=== PATIENT | male | born 1965 | race American Indian/Alaskan Native ===

== ENCOUNTER 2016-07-22 21:03 | Emergency (ER) | payer BC, OTHER ==
[2016-07-22 22:47] LABS: Anion Gap 21 mmol/L; Basophils % (Auto) 0.6 % (0.0-1.8); Blood Urea Nitrogen 18 mg/dL (9-20); Calcium 8.8 mg/dL (8.4-10.2); Carbon Dioxide 18 mmol/L (22-30); Chloride 108.6 mmol/L (98-107); Eosinophils % (Auto) 3.2 % (0.0-4.3); Glucose 122 mg/dL (75-100); Hematocrit 39.2 % (35.5-45.6); Hemoglobin 12.5 gm/dl (11.8-15.2); Mean Corpuscular HGB Conc 32 % (32-34); Mean Corpuscular Hemoglobin 29 pg (28-32); Mean Corpuscular Volume 92 fl (84-94); Platelet Count 525 K/mm3 (140-440); Potassium 3.8 mmol/L (3.6-5.0); Red Blood Count 4.27 M/mm3 (3.65-5.03); Red Cell Distribution Width 13.9 % (13.2-15.2); Sodium 144 mmol/L (137-145); Uric Acid 4.1 mg/dL (3.5-7.6); White Blood Count 12.9 K/mm3 (4.5-11.0)
--- NOTE | 2016-07-23 01:51 | Emergency Department Report ---
ED Extremity Problem HPI - General Chief complaint: Extremity Injury, Lower Stated complaint: SWOLLEN LT FOOT Time Seen by Provider: 07/23/16 01:50 Source: patient Mode of arrival: Ambulatory Limitations: No Limitations - History of Present Illness Initial comments: Patient here reported that he has swelling to his left foot times one day with pain. Denies any injury. He said he had similar incident in the past in his feeds hand and knees. Patient with history of gouty arthritis and high blood pressure. He has not taken any medication for his high blood pressure. Patient said that he is not being managed by anyone for his chronic medical problem but he would like to be assigned a primary care doctor. She reports pain is 4-10 and is worse with walking. Denies any fever or chills or numbness or tingling to extremities. Denies any personal history of blood clots or family history of blood clots. Denies any recent surgery or long distance travel by car or airplane. Denies taking hormones. MD Complaint: extremity pain, extremity swelling Onset/Timin -: days(s) Location: left, lower extremity (foot) -: No myalgia, Yes arthralgia, No fever, No associated dyspnea, No associated chest pain Radiation: distal Severity scale (0 -10): 4 Quality: aching (throbbing) Consistency: constant Improves with: immobilization Worsens with: weight bearing, walking, palpation Associated Symptoms: arthralgias. denies: chest pain, shortness of breath, fever, myalgias, rash - Related Data Previous Rx's Medication Instructions Recorded Last Taken Type HYDROcodone/APAP 7.5-325 [[place] 1 each PO Q6HR PRN #20 tablet 03/03/15 Unknown Rx 7.5/325] Meloxicam [Mobic] 7.5 mg PO QDAY #30 tablet 03/03/15 Unknown Rx Prednisone [predniSONE 10 mg 10 mg PO .TAPER #1 tab.ds.pk 03/03/15 Unknown Rx (6-Day Pack, 21 Tabs)] amLODIPine [Norvasc] 10 mg PO DAILY #30 tab 03/04/15 Unknown Rx Colchicine [Colcrys] 0.6 mg PO BID PRN #14 tablet 07/23/16 Unknown Rx Ibuprofen [Motrin] 600 mg PO Q8H PRN #15 tablet 07/23/16 Unknown Rx methylPREDNISolone [Medrol] 4 mg PO QAM #1 tab.ds.pk 07/23/16 Unknown Rx Allergies Allergy/AdvReac Type Severity Reaction Status Date / Time No Known Allergies Allergy Verified 03/03/15 22:21 ED Review of Systems ROS: Stated complaint: SWOLLEN LT FOOT Other details as noted in HPI Comment: All other systems reviewed and negative Constitutional: denies: chills, diaphoresis Respiratory: no symptoms reported Cardiovascular: denies: chest pain, palpitations, edema, syncope Gastrointestinal: denies: abdominal pain, nausea, vomiting Musculoskeletal: arthralgia, other (foot swelling). denies: back pain, joint swelling Skin: denies: rash Neurological: denies: headache, numbness, paresthesias, confusion, abnormal gait , vertigo ED Past Medical Hx - Past Medical History Previous Medical History?: Yes Hx Hypertension: Yes (nomeds) Additional medical history: Gout, arthritis - Surgical History Past Surgical History?: No - Family History Family history: hypertension - Social History Smoking Status: Current Every Day Smoker Substance Use Type: Alcohol - Medications Home Medications: Home Medications Medication Instructions Recorded Confirmed Last Taken Type HYDROcodone/APAP 7.5-325 [[place] 1 each PO Q6HR PRN #20 tablet 03/03/15 Unknown Rx 7.5/325] Meloxicam [Mobic] 7.5 mg PO QDAY #30 tablet 03/03/15 Unknown Rx Prednisone [predniSONE 10 mg 10 mg PO .TAPER #1 tab.ds.pk 03/03/15 Unknown Rx (6-Day Pack, 21 Tabs)] amLODIPine [Norvasc] 10 mg PO DAILY #30 tab 03/04/15 Unknown Rx Colchicine [Colcrys] 0.6 mg PO BID PRN #14 tablet 07/23/16 Unknown Rx Ibuprofen [Motrin] 600 mg PO Q8H PRN #15 tablet 07/23/16 Unknown Rx methylPREDNISolone [Medrol] 4 mg PO QAM #1 tab.ds.pk 07/23/16 Unknown Rx ED Physical Exam - General Limitations: No Limitations General appearance: alert, in no apparent distress - Head Head exam: Present: atraumatic, normocephalic, normal inspection - Eye Eye exam: Present: normal appearance, PERRL, EOMI Pupils: Present: normal accommodation - Neck Neck exam: Present: normal inspection, full ROM. Absent: tenderness, meningismus, lymphadenopathy - Respiratory Respiratory exam: Present: normal lung sounds bilaterally. Absent: respiratory distress - Cardiovascular Cardiovascular Exam: Present: regular rate, normal rhythm, normal heart sounds - Expanded Lower Extremity Exam Left Hip exam: Present: normal inspection, full ROM, pelvic stability. Absent: tenderness, swelling, abrasion, laceration, ecchymosis, deformity, crepidus, dislocation, erythema, external rotation, internal rotation, shortening Upper Leg exam: Present: normal inspection, full ROM. Absent: tenderness, swelling, abrasion, laceration, ecchymosis, deformity, crepidus, dislocation, erythema Knee exam: Present: normal inspection, full ROM, pain w/ pronation/supination, full knee extension. Absent: tenderness, swelling, abrasion, laceration, ecchymosis, deformity, crepidus, dislocation, erythema, effusion Lower Leg exam: Present: normal inspection, full ROM. Absent: tenderness, swelling, abrasion, laceration, ecchymosis, deformity, crepidus, dislocation, erythema, palpable cord, Ashwin's sign Ankle exam: Present: normal inspection, full ROM. Absent: tenderness, swelling , abrasion, laceration, ecchymosis, deformity, crepidus, dislocation, erythema Foot/Toe exam: Present: full ROM (full range of motion to left foot but he said it hurts with movement in his foot. Passive range of motion to left foot.), tenderness (left anterior foot), swelling (left anterior foot). Absent: normal inspection, abrasion, laceration, ecchymosis, deformity, crepidus, dislocation, erythema, amputation, puncture wound, foreign body, calcaneal tenderness, tenderness at base of 5th metatarsal, nail avulsion, subungual hematoma Neuro vascular tendon exam: Present: no vascular compromise, significant pain with passive ROM of distal joint. Absent: pulse deficit, abnormal cap refill, motor deficit, sensory deficit, tendon deficit, extremity cold to touch, pallor , abnormal 2-point discrimination, decreased fine/light touch, foot drop, peroneal nerve deficit Gait: Positive: observed and limited by pain - Back Exam Back exam: Present: normal inspection, full ROM - Neurological Exam Neurological exam: Present: alert, oriented X3, normal gait, reflexes normal. Absent: motor sensory deficit - Psychiatric Psychiatric exam: Present: normal affect, normal mood - Skin Skin exam: Present: warm, dry, intact, normal color. Absent: rash ED Course Vital Signs 07/22/16 21:48 Temperature 98.3 F Pulse Rate 91 H Respiratory 18 Rate Blood Pressure 132/80 [Right] O2 Sat by Pulse 99 Oximetry - Reevaluation(s) Reevaluation #1: 07/23/16 03:40 Patient given 60 mg and Motrin 800 mg in emergency room for acute gout attack. ED Medical Decision Making - Lab Data Result diagrams: 07/22/16 21:53 07/22/16 21:53 Lab Results 07/22/16 07/22/16 07/23/16 Range/Units 21:53 21:53 02:11 WBC 12.9 H (4.5-11.0) K/mm3 RBC 4.27 (3.65-5.03) M/mm3 Hgb 12.5 (11.8-15.2) gm/dl Hct 39.2 (35.5-45.6) % MCV 92 (84-94) fl MCH 29 (28-32) pg MCHC 32 (32-34) % RDW 13.9 (13.2-15.2) % Plt Count 525 H (140-440) K/mm3 Lymph % (Auto) 18.7 (13.4-35.0) % Coleman % (Auto) 4.6 (0.0-7.3) % Eos % (Auto) 3.2 (0.0-4.3) % Baso % (Auto) 0.6 (0.0-1.8) % Lymph # 2.4 (1.2-5.4) K/mm3 Coleman # 0.6 (0.0-0.8) K/mm3 Eos # 0.4 (0.0-0.4) K/mm3 Baso # 0.1 (0.0-0.1) K/mm3 Seg Neutrophils % 72.9 H (40.0-70.0) % Seg Neutrophils # 9.4 H (1.8-7.7) K/mm3 PT 14.1 (12.2-14.9) Sec. INR 1.10 (0.87-1.13) APTT 29.8 (24.2-36.6) Sec. Sodium 144 (137-145) mmol/L Potassium 3.8 (3.6-5.0) mmol/L Chloride 108.6 H (98-107) mmol/L Carbon Dioxide 18 L (22-30) mmol/L Anion Gap 21 mmol/L BUN 18 (9-20) mg/dL Creatinine 0.8 (0.8-1.5) mg/dL Estimated GFR > 60 ml/min BUN/Creatinine Ratio 22.50 % Glucose 122 H (75-100) mg/dL Lactic Acid (0.7-2.0) mmol/L Uric Acid 4.1 (3.5-7.6) mg/dL Calcium 8.8 (8.4-10.2) mg/dL 07/23/16 Range/Units 02:11 WBC (4.5-11.0) K/mm3 RBC (3.65-5.03) M/mm3 Hgb (11.8-15.2) gm/dl Hct (35.5-45.6) % MCV (84-94) fl MCH (28-32) pg MCHC (32-34) % RDW (13.2-15.2) % Plt Count (140-440) K/mm3 Lymph % (Auto) (13.4-35.0) % Coleman % (Auto) (0.0-7.3) % Eos % (Auto) (0.0-4.3) % Baso % (Auto) (0.0-1.8) % Lymph # (1.2-5.4) K/mm3 Coleman # (0.0-0.8) K/mm3 Eos # (0.0-0.4) K/mm3 Baso # (0.0-0.1) K/mm3 Seg Neutrophils % (40.0-70.0) % Seg Neutrophils # (1.8-7.7) K/mm3 PT (12.2-14.9) Sec. INR (0.87-1.13) APTT (24.2-36.6) Sec. Sodium (137-145) mmol/L Potassium (3.6-5.0) mmol/L Chloride (98-107) mmol/L Carbon Dioxide (22-30) mmol/L Anion Gap mmol/L BUN (9-20) mg/dL Creatinine (0.8-1.5) mg/dL Estimated GFR ml/min BUN/Creatinine Ratio % Glucose (75-100) mg/dL Lactic Acid 0.6 L (0.7-2.0) mmol/L Uric Acid (3.5-7.6) mg/dL Calcium (8.4-10.2) mg/dL - Radiology Data Radiology results: report reviewed X-ray of left foot revealed no evidence of acute fracture. Moderate arthritis. Moderate hallux valgus deformity - Medical Decision Making Collaborated with Dr. Quintero and patient presentation, complains, clinical findings lab results. It was decided the patient can be discharged home and follow up with his primary care physician. Patient patient lab work also revealed that his white count was elevated at 12 and his neutrophils were high.PLT was at 525. His lactic acid is 0.6. ED course:Low risk group for DVT. Unlikely according to [facility] DVT studies. Patient with history of gout with acute flare.. Acid was normal. Patient said he's had similar incident in the past. I discussed with patient that is fine and I instructed him to discharge instruction well-developed and feels that is high in reading. Patient is stable and forceps understanding of discharge instruction. Patient discharged home with prescription for prednisone, Motrin and Colcrys. Critical care attestation.: If time is entered above; I have spent that time in minutes in the direct care of this critically ill patient, excluding procedure time. ED Disposition Clinical Impression: Arthralgia of left foot, Hallux valgus of left foot Gout attack Qualifiers: Gout site: foot Gout etiology: unspecified cause Laterality: left Qualified Code(s): M10.9 - Gout, unspecified Disposition: DISCHARGED TO HOME OR SELFCARE Is pt being admited?: No Does the pt Need Aspirin: No Condition: Stable Instructions: Arthralgia (ED), Acute Gouty Arthritis (ED), Low Purine Diet (ED) Additional Instructions: History of discharge instructions on well-developed and low purine foods Follow-up with hazardous material specialist DR. Shoemaker is Primary care doctor, calling Monday to schedule appointment for physical and to manage chronic diseases. Prescriptions: Colchicine [Colcrys] 0.6 mg PO BID PRN #14 tablet PRN Reason: GOUT PAIN Ibuprofen [Motrin] 600 mg PO Q8H PRN #15 tablet PRN Reason: Pain methylPREDNISolone [Medrol] 4 mg PO QAM #1 tab.ds.pk Referrals: HERNÁN ROBLES DPM [Staff Physician] - 2-3 Days JANE SHOEMAKER MD [Staff Physician] - 2-3 Days Forms: Work/School Release Form(ED)
--- NOTE | 2016-07-23 02:00 | XRay Report ---
FINAL REPORT PROCEDURE: XR FOOT 3 LT TECHNIQUE: LEFT foot radiographs, AP, oblique and lateral views. HISTORY: pain, swelling, send for report COMPARISON: No prior studies are available for comparison. FINDINGS: Fracture (s) and/or Dislocation(s): None . Alignment: There is moderate hallux valgus deformity. Spur formation off of the sesamoid bones of the head of the 1st metatarsal are noted. Joint space(s): Mild narrowing of the interphalangeal joint spaces. Soft tissues: Normal. Bone mineralization: Normal. Foreign bodies: None. Calcaneal spurring: None. IMPRESSION: There is no evidence of an acute fracture. Moderate arthritis. Moderate hallux valgus deformity.
[2016-07-23 02:37] LABS: INR 1.1 (0.87-1.13)
[2016-07-23 02:38] LABS: Partial Thromboplastin Time 29.8 Sec. (24.2-36.6)
[2016-07-23] MEDS ORDERED: MOTRIN PO ONE (03:24)
[2016-07-23] MEDS ORDERED: DELTASONE PO ONE (03:32)
[2016-07-23 04:01] VITALS: BP 139/82
== END 2016-07-23 04:00 | disposition home or self-care (01) ==
LOC: ED 21:03
DX: M20.12 Hallux valgus (acquired), left foot (principal); M10.9 Gout, unspecified; I10 Essential (primary) hypertension; M19.90 Unspecified osteoarthritis, unspecified site; F17.200 Nicotine dependence, unspecified, uncomplicated
CPT/HCPCS: 36415; 73630; 80048; 82140; 84550; 85025; 85610; 85730; 99284; J7512

== ENCOUNTER 2019-02-08 18:45 | Emergency (ER) | payer OTHER ==
--- NOTE | 2019-02-08 19:18 | Event Note ---
ED Screening Note Date of service: 02/08/19 Time: 19:14 ED Screening Note: 53 y/o male comes in for left ankle pain swelling and warm time 1 day. Patient has a h/x gout and HTN but does not take any medication for his blood pressure. No FRANCO no chest pain. This initial assessment/diagnostic orders/clinical plan/treatment(s) is/are subject to change based on patients health status, clinical progression and re- assessment by fellow clinical providers in the ED. Further treatment and workup at subsequent clinical providers discretion. Patient/guardian urged not to elope from the ED as their condition may be serious if not clinically assessed and managed. Initial orders include:
[2019-02-08 19:22] VITALS: BP 170/117
[2019-02-08] MEDS ORDERED: COLCHICINE 0.6 MG CAP PO ONE (19:59)
[2019-02-08] MEDS ORDERED: methylPREDNISolone Sod Succinate 125 MG/2 ML INJ IM ONE (19:59)
[2019-02-08] MEDS ORDERED: KETOROLAC 30 MG/1 ML INJ IM ONE (19:59)
--- NOTE | 2019-02-08 20:47 | Emergency Department Report ---
ED Extremity Problem HPI - General Chief complaint: Extremity Problem,Nontraumatic Stated complaint: FOOT/ANKLE PAIN Time Seen by Provider: 02/08/19 19:14 Source: patient Mode of arrival: Ambulatory Limitations: No Limitations - History of Present Illness Initial comments: Patient is a 53-year-old -[place] male with a history of chronic gouty arthropathy and degenerative joint disease presents to the ED with complaint of acute exacerbation of his chronic gout pain characterized by severe left ankle and foot pain for the last 3 days. Patient states that he has been taking ibuprofen with no relief. Patient denies fever, chills, nausea, vomiting, numbness and tingling of left leg, dizziness, chest pain, shortness of breath, traumatic injury, heavy lifting or fall. MD Complaint: extremity pain (left ankle pain, swelling), extremity swelling (left ankle), joint swelling (left ankle), joint paint (left ankle), other (H/o Gouty arthropathy) -: Sudden, days(s) (2) Location: lower extremity (left ankle) History of Same: Yes (chronic gout) -: Yes arthralgia, No fever, No associated dyspnea, No associated chest pain Radiation: none Severity scale (0 -10): 7 Quality: aching, sharp Consistency: constant Improves with: nothing Worsens with: weight bearing, walking, exertion, palpation Associated Symptoms: denies other symptoms, arthralgias. denies: chest pain, shortness of breath, fever, myalgias, rash, other - Related Data Previous Rx's Medication Instructions Recorded Last Taken Type HYDROcodone/APAP 7.5-325 [[place] 1 each PO Q6HR PRN #20 tablet 03/03/15 Unknown Rx 7.5/325] Meloxicam [Mobic] 7.5 mg PO QDAY #30 tablet 03/03/15 Unknown Rx Prednisone [predniSONE 10 mg 10 mg PO .TAPER #1 tab.ds.pk 03/03/15 Unknown Rx (6-Day Pack, 21 Tabs)] amLODIPine [Norvasc] 10 mg PO DAILY #30 tab 03/04/15 Unknown Rx Colchicine [Colcrys] 0.6 mg PO BID PRN #14 tablet 07/23/16 Unknown Rx Ibuprofen [Motrin] 600 mg PO Q8H PRN #15 tablet 07/23/16 Unknown Rx methylPREDNISolone [Medrol] 4 mg PO QAM #1 tab.ds.pk 07/23/16 Unknown Rx Colchicine 0.6 mg PO Q8H #30 capsule 02/08/19 Unknown Rx Indomethacin 50 mg PO Q8H PRN #45 capsule 02/08/19 Unknown Rx Prednisone [predniSONE 10 mg 10 mg PO .TAPER #1 tab.ds.pk 02/08/19 Unknown Rx (6-Day Pack, 21 Tabs)] traMADol [Ultram] 50 mg PO Q6HR PRN #12 tablet 02/08/19 Unknown Rx Allergies Allergy/AdvReac Type Severity Reaction Status Date / Time No Known Allergies Allergy Verified 03/03/15 22:21 ED Review of Systems ROS: Stated complaint: FOOT/ANKLE PAIN Other details as noted in HPI Constitutional: denies: chills, fever Eyes: denies: eye pain, eye discharge, vision change ENT: denies: ear pain, throat pain Respiratory: denies: cough, shortness of breath, wheezing Cardiovascular: denies: chest pain, palpitations Endocrine: no symptoms reported Gastrointestinal: denies: abdominal pain, nausea, diarrhea Genitourinary: denies: urgency, dysuria Musculoskeletal: joint swelling (left ankle), arthralgia (left ankle), myalgia (left ankle). denies: back pain Skin: denies: rash, lesions Neurological: denies: headache, weakness, paresthesias Psychiatric: denies: anxiety, depression Hematological/Lymphatic: denies: easy bleeding, easy bruising ED Past Medical Hx - Past Medical History Previous Medical History?: Yes Hx Hypertension: Yes (nomeds) Additional medical history: Gout, arthritis - Surgical History Past Surgical History?: No - Social History Smoking Status: Current Every Day Smoker Substance Use Type: Alcohol - Medications Home Medications: Home Medications Medication Instructions Recorded Confirmed Last Taken Type HYDROcodone/APAP 7.5-325 [[place] 1 each PO Q6HR PRN #20 tablet 03/03/15 Unknown Rx 7.5/325] Meloxicam [Mobic] 7.5 mg PO QDAY #30 tablet 03/03/15 Unknown Rx Prednisone [predniSONE 10 mg 10 mg PO .TAPER #1 tab.ds.pk 03/03/15 Unknown Rx (6-Day Pack, 21 Tabs)] amLODIPine [Norvasc] 10 mg PO DAILY #30 tab 03/04/15 Unknown Rx Colchicine [Colcrys] 0.6 mg PO BID PRN #14 tablet 07/23/16 Unknown Rx Ibuprofen [Motrin] 600 mg PO Q8H PRN #15 tablet 07/23/16 Unknown Rx methylPREDNISolone [Medrol] 4 mg PO QAM #1 tab.ds.pk 07/23/16 Unknown Rx Colchicine 0.6 mg PO Q8H #30 capsule 02/08/19 Unknown Rx Indomethacin 50 mg PO Q8H PRN #45 capsule 02/08/19 Unknown Rx Prednisone [predniSONE 10 mg 10 mg PO .TAPER #1 tab.ds.pk 02/08/19 Unknown Rx (6-Day Pack, 21 Tabs)] traMADol [Ultram] 50 mg PO Q6HR PRN #12 tablet 02/08/19 Unknown Rx ED Physical Exam - General Limitations: No Limitations General appearance: alert, in no apparent distress - Head Head exam: Present: atraumatic, normocephalic, normal inspection - Eye Eye exam: Present: normal appearance, PERRL, EOMI Pupils: Present: normal accommodation - ENT ENT exam: Present: normal exam, normal orophraynx, mucous membranes moist, TM's normal bilaterally, normal external ear exam - Neck Neck exam: Present: normal inspection, full ROM - Respiratory Respiratory exam: Present: normal lung sounds bilaterally. Absent: respiratory distress, wheezes, rales, rhonchi, chest wall tenderness, accessory muscle use, decreased breath sounds, prolonged expiratory - Cardiovascular Cardiovascular Exam: Present: regular rate, normal rhythm, normal heart sounds. Absent: systolic murmur, diastolic murmur, rubs, gallop - GI/Abdominal GI/Abdominal exam: Present: soft, normal bowel sounds. Absent: tenderness, guarding, rebound, hyperactive bowel sounds, hypoactive bowel sounds, organomegaly, mass - Rectal Rectal exam: Present: deferred - Extremities Exam Extremities exam: Present: normal inspection, full ROM, tenderness (left ankle), normal capillary refill, joint swelling (left ankle) - Back Exam Back exam: Present: normal inspection, full ROM. Absent: tenderness, CVA tenderness (R), CVA tenderness (L), muscle spasm, paraspinal tenderness - Neurological Exam Neurological exam: Present: alert, oriented X3, CN II-XII intact, normal gait, reflexes normal - Psychiatric Psychiatric exam: Present: normal affect, normal mood - Skin Skin exam: Present: warm, dry, intact, normal color. Absent: rash ED Course Vital Signs 02/08/19 19:18 Temperature 98.2 F Pulse Rate 96 H Respiratory 20 Rate Blood Pressure 170/117 O2 Sat by Pulse 100 Oximetry - Reevaluation(s) Reevaluation #1: 02/08/19 20:53 This is a 53-year-old male with a history of chronic and hypertension presented to the ED with acute exacerbation of his chronic gouty arthropathy characterized by left ankle pain and swelling for 2 days. In the ED, patient is alert and oriented 3 and is not in distress but appears to be in pain. Patient was treated for pain in the ED and discharged home on medications including steroid Dosepak and indomethacin. Patient was advised to follow-up with his primary care physician in 7-10 days for reevaluation or return to the ED immediately if symptoms get worse. ED Medical Decision Making - Medical Decision Making This is a 53-year-old male with a history of chronic and hypertension presented to the ED with acute exacerbation of his chronic gouty arthropathy characterized by left ankle pain and swelling for 2 days. In the ED, patient is alert and oriented 3 and is not in distress but appears to be in pain. Patient was treated for pain in the ED and discharged home on medications including steroid Dosepak and indomethacin. Patient was advised to follow-up with his primary care physician in 7-10 days for reevaluation or return to the ED immediately if symptoms get worse. - Differential Diagnosis Gouty arthropathy; Chronic pain; Chronic DJD; ankle pain Critical care attestation.: If time is entered above; I have spent that time in minutes in the direct care of this critically ill patient, excluding procedure time. ED Disposition Clinical Impression: Acute gouty arthropathy, Acute left ankle pain Disposition: DC-01 TO HOME OR SELFCARE Is pt being admited?: No Does the pt Need Aspirin: No Condition: Stable Instructions: Arthralgia (ED), Acute Gouty Arthritis (ED) Additional Instructions: Take medication with food, drink plenty of fluids and follow-up with your primary care physician in 7-10 days for reevaluation. Return to the ED immediately if symptoms get worse. Prescriptions: Colchicine 0.6 mg PO Q8H #30 capsule Indomethacin 50 mg PO Q8H PRN #45 capsule PRN Reason: Pain , Severe (7-10) Prednisone [predniSONE 10 mg (6-Day Pack, 21 Tabs)] 10 mg PO .TAPER #1 tab.ds.pk traMADol [Ultram] 50 mg PO Q6HR PRN #12 tablet PRN Reason: Pain [facility] - [facility] Time of Disposition: 20:44 Print Language: SLOVAK
== END 2019-02-08 21:15 | disposition home or self-care (01) ==
LOC: ED 18:45
DX: M10.9 Gout, unspecified (principal); I10 Essential (primary) hypertension; F17.200 Nicotine dependence, unspecified, uncomplicated
CPT/HCPCS: 96372; 99282; J1885; J2930

== ENCOUNTER 2020-02-22 11:54 | Inpatient (IN) | payer OTHER ==
--- NOTE | 2020-02-22 16:57 | Event Note ---
ED Screening Note Date of service: 02/22/20 Time: 16:55 ED Screening Note: This initial assessment/diagnostic orders/clinical plan/treatment(s) is/are subject to change based on patients health status, clinical progression and re- assessment by fellow clinical providers in the ED. Further treatment and workup at subsequent clinical providers discretion. Patient/guardian urged not to elope from the ED as their condition may be serious if not clinically assessed and managed. Initial orders include: 54-year-old male complaining of shortness of breath and weakness x3 days he reports having chest pain last night while at work. He is also complaining of nausea no vomiting no fever no chills patient is a smoker and drinks a sixpack of beer every other day. Patient states that he is out of his blood pressure medication the last time he had blood pressure meds was in June and it was g iven to him in this emergency room. He states he has had no other medical follow-up. Orders placed for chest x-ray EKG CBC CMP troponin and BNP chart placed in the main emergency room for physician to see
--- NOTE | 2020-02-22 17:08 | XRay Report ---
CHEST PA AND LATERAL VIEWS INDICATION: sob. COMPARISON: 07/21/2019 FINDINGS: Support devices: None Heart: Moderately enlarged, possibly increased slightly since June Lungs/Pleura: No definite pulmonary edema or other acute disease. No evidence of significant pleural fluid. IMPRESSION: 1. Cardiomegaly but no definite acute disease. Signer Name: Antonino Yo MD Signed: 02/22/2020 5:03 PM Workstation Name: [id number]
[2020-02-22 17:12] LABS: Alanine Aminotransferase 71 units/L (7-56); Albumin 3.8 g/dL (3.9-5); BUN/Creatinine Ratio 28; Blood Urea Nitrogen 28 mg/dL (9-20); Calcium 9.2 mg/dL (8.4-10.2); Hemolysis Index 110
[2020-02-22] MEDS ORDERED: ACETAMINOPHEN 325 MG TAB PO ONE (17:15)
[2020-02-22 17:18] LABS: Basophils # (Auto) 0.1 K/mm3 (0.0-0.1); Basophils % (Auto) 1.1 % (0.0-1.8); Eosinophils # (Auto) 0.2 K/mm3 (0.0-0.4); Eosinophils % (Auto) 2.3 % (0.0-4.3); Hematocrit 46.5 % (35.5-45.6); Hemoglobin 15.2 gm/dl (11.8-15.2); Lymphocytes # (Auto) 2.8 K/mm3 (1.2-5.4); Lymphocytes % (Auto) 31.8 % (13.4-35.0); Mean Corpuscular HGB Conc 33 % (32-34); Mean Corpuscular Volume 90 fl (84-94); Monocytes # (Auto) 0.6 K/mm3 (0.0-0.8); Platelet Count 256 K/mm3 (140-440); Red Blood Count 5.19 M/mm3 (3.65-5.03); Red Cell Distribution Width 15.6 % (13.2-15.2)
--- NOTE | 2020-02-22 17:18 | Emergency Department Report ---
ED General Adult HPI - General Chief complaint: Dyspnea/Respdistress Stated complaint: SOB/WEAKNESS PUI?: No Time Seen by Provider: 02/22/20 17:02 Source: patient, RN notes reviewed, old records reviewed Mode of arrival: Ambulatory Limitations: No Limitations - History of Present Illness Initial comments: The patient was evaluated in the emergency department for symptoms described in the history of present illness. He/she was evaluated in the context of the global COVID-19 pandemic, which necessitated consideration that the patient might be at risk for infection with the virus that causes COVID-19. Institutional protocols and algorithms that pertain to the evaluation of patients at risk for COVID-19 are in a state of rapid change based on information released by regulatory bodies including the CDC and federal and sta te organizations. These policies and algorithms were followed during the patient's care in the emergency department. Please note that these policies, procedures and recommendations changed on a rapid basis. Patient is a 54-year-old gentleman. Patient has a past medical history of hypertension, gout, tobacco dependency, question COPD (has not had formal pulmonary function testing that he is aware of.) The patient presents to the ER today with complaint of nontraumatic central, bilateral chest pain, that does not radiate to the back, arms or neck, no vomiting, positive diaphoresis, positive shortness of breath, positive lower extremity swelling, positive abdominal distention and discomfort. Symptoms present for the past 5 to 6 days. There is no headache or neck pain. There is no vomiting. There were no DVT or pulmonary embolism risk factors. No recent aspirin consumption. No cardiac risk ratification that he is aware of. No personal family history of DVT, pulmonary embolism or ischemic heart disease that he is aware of. He does not have a primary care doctor. 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 -: Gradual, days(s) Location: chest Radiation: non-radiation Quality: aching Consistency: intermittent Improves with: none Worsens with: none - Related Data Previous Rx's Medication Instructions Recorded Last Taken Type Acetaminophen [Acetaminophen TAB] 325 mg PO Q6H PRN #15 tablet 07/23/19 Unknown Rx Allergies Allergy/AdvReac Type Severity Reaction Status Date / Time No Known Allergies Allergy Verified 03/03/15 22:21 ED Review of Systems ROS: Stated complaint: SOB/WEAKNESS Other details as noted in HPI Constitutional: malaise, weakness, other (No loss of taste, no loss of smell). denies: fever ENT: congestion Cardiovascular: chest pain, orthopnea, edema Gastrointestinal: abdominal pain, nausea. denies: vomiting, hematemesis, melena, hematochezia Genitourinary: denies: dysuria Musculoskeletal: myalgia Skin: denies: lesions Neurological: weakness Hematological/Lymphatic: denies: easy bleeding ED Past Medical Hx - Past Medical History Previous Medical History?: Yes Hx Hypertension: Yes Hx Arthritis: Yes Additional medical history: Gout, arthritis - Surgical History Past Surgical History?: No - Social History Smoking Status: Current Every Day Smoker Substance Use Type: Alcohol - Medications Home Medications: Home Medications Medication Instructions Recorded Confirmed Last Taken Type Acetaminophen [Acetaminophen TAB] 325 mg PO Q6H PRN #15 tablet 07/23/19 02/22/20 Unknown Rx ED Physical Exam - General Limitations: No Limitations General appearance: alert, anxious, obese - Head Head exam: Present: atraumatic, normocephalic - Eye Eye exam: Present: normal appearance, EOMI. Absent: nystagmus - ENT ENT exam: Present: normal exam, normal orophraynx, mucous membranes moist, normal external ear exam - Neck Neck exam: Present: normal inspection, full ROM. Absent: tenderness, m eningismus - Respiratory Respiratory exam: Present: decreased breath sounds. Absent: respiratory distress, rales, rhonchi, stridor - Cardiovascular Cardiovascular Exam: Present: regular rate, normal rhythm, normal heart sounds, JVD. Absent: bradycardia, tachycardia, irregular rhythm, systolic murmur, diastolic murmur, rubs, gallop - GI/Abdominal GI/Abdominal exam: Present: soft, normal bowel sounds. Absent: distended, tenderness, guarding, rebound, rigid, pulsatile mass - Rectal Rectal exam: Present: deferred - Extremities Exam Extremities exam: Present: normal inspection, full ROM, pedal edema, other (2+ pulses noted in the bilateral upper and lower extremities. There is no palpable cord. negative Homans sign. Muscular compartments are soft. The pelvis is stable.). Absent: calf tenderness - Back Exam Back exam: Present: normal inspection, full ROM. Absent: tenderness, CVA tenderness (R), CVA tenderness (L), paraspinal tenderness, vertebral tenderness - Neurological Exam Neurological exam: Present: alert, oriented X3, other (No facial droop. Tongue midline. Extraocular movements intact bilaterally. Facial sensation intact to light touch in V1, V2, V3 distribution bilaterally. 5 and a 5 strength in 4 extremities. Sensation intact to light touch in 4 extremities.). Absent: motor sensory deficit - Psychiatric Psychiatric exam: Present: normal affect, normal mood - Skin Skin exam: Present: warm, dry, intact, normal color. Absent: rash ED Course Vital Signs 02/22/20 02/22/20 02/22/20 12:26 16:32 17:14 Temperature 97.9 F 97.6 F Pulse Rate 89 90 Respiratory 18 20 Rate Blood Pressure 173/123 Blood Pressure 180/130 [Right] O2 Sat by Pulse 99 96 94 Oximetry 02/22/20 02/22/20 02/22/20 17:54 18:00 18:33 Temperature Pulse Rate Respiratory 22 22 Rate Blood Pressure Blood Pressure [Right] O2 Sat by Pulse 93 96 Oximetry 02/22/20 02/22/20 02/22/20 18:38 18:58 19:01 Temperature Pulse Rate 88 90 84 Respiratory 24 30 H Rate Blood Pressure 168/124 168/127 Blood Pressure 168/124 [Right] O2 Sat by Pulse 97 93 Oximetry - Reevaluation(s) Reevaluation #1: 02/22/20 20:36 CT scan of the chest negative for pulmonary embolism, positive for congestive heart failure as expected ED Medical Decision Making - Lab Data Result diagrams: 02/22/20 16:38 02/22/20 16:38 Vital Signs 02/22/20 02/22/20 02/22/20 12:26 16:32 17:54 Temperature 97.9 F 97.6 F Pulse Rate 89 90 Respiratory 18 20 22 Rate Blood Pressure 173/123 Blood Pressure 180/130 [Right] O2 Sat by Pulse 99 96 Oximetry Lab Results 02/22/20 02/22/20 02/22/20 Range/Units 16:38 16:38 16:38 WBC 8.7 (4.5-11.0) K/mm3 RBC 5.19 H (3.65-5.03) M/mm3 Hgb 15.2 (11.8-15.2) gm/dl Hct 46.5 H (35.5-45.6) % MCV 90 (84-94) fl MCH 29 (28-32) pg MCHC 33 (32-34) % RDW 15.6 H (13.2-15.2) % Plt Count 256 (140-440) K/mm3 Lymph % (Auto) 31.8 (13.4-35.0) % [place] % (Auto) 7.0 (0.0-7.3) % Eos % (Auto) 2.3 (0.0-4.3) % Baso % (Auto) 1.1 (0.0-1.8) % Lymph # (Auto) 2.8 (1.2-5.4) K/mm3 [place] # (Auto) 0.6 (0.0-0.8) K/mm3 Eos # (Auto) 0.2 (0.0-0.4) K/mm3 Baso # (Auto) 0.1 (0.0-0.1) K/mm3 Seg Neutrophils % 57.8 (40.0-70.0) % Seg Neutrophils # 5.0 (1.8-7.7) K/mm3 Sodium 140 (137-145) mmol/L Potassium 4.7 (3.6-5.0) mmol/L Chloride 108.6 H (98-107) mmol/L Carbon Dioxide 20 L (22-30) mmol/L Anion Gap 16 mmol/L BUN 28 H (9-20) mg/dL Creatinine 1.0 (0.8-1.3) mg/dL Estimated GFR > 60 ml/min BUN/Creatinine Ratio 28 % Glucose 98 (75-100) mg/dL Calcium 9.2 (8.4-10.2) mg/dL Total Bilirubin 1.00 (0.1-1.2) mg/dL AST 75 H (5-40) units/L ALT 71 H (7-56) units/L Alkaline Phosphatase 171 H (35-129) units/L Troponin T < 0.010 (0.00-0.029) ng/mL NT-Pro-B Natriuret Pep 6093 H (0-900) pg/mL Total Protein 6.5 (6.3-8.2) g/dL Albumin 3.8 L (3.9-5) g/dL Albumin/Globulin Ratio 1.4 % - EKG Data -: EKG Interpreted by Pr EKG shows normal: sinus rhythm Rate: normal - EKG Data 10/24/20 18:37 The EKG today shows a sinus rhythm, 86 bpm, left axis deviation, left anterior fascicular block, premature atrial contractions, atrial enlargement, persistent T wave abnormalities in the lateral leads, the EKG is abnormal, the EKG is not a STEMI. - Radiology Data Radiology results: report reviewed, image reviewed Print Report Referring Physician: MARCO ANTONIO STERLING Patient Name: LYDIA VALENTE Date of : 1965 Sex: Male Report Date: 2020-02-22 Report Status: Finalized Findings [facility] [address] [place] [address] XRay Report Signed Patient: LYDIA VALENTE MR#: [id number] : 1965 Acct:[id number] Age/Sex: 54 / M ADM Date: 02/22/20 Loc: ED Attending Dr: Ordering Physician: LE TREVIÑO Date of Service: 02/22/20 Procedure(s): XR chest routine 2V Accession Number(s): [id number] cc: LE TREVIÑO Fluoro Time In Minutes: CHEST PA AND LATERAL VIEWS INDICATION: sob. COMPARISON: 07/21/2019 FINDINGS: Support devices: None Heart: Moderately enlarged, possibly increased slightly since June Lungs/Pleura: No definite pulmonary edema or other acute disease. No evidence of significant pleural fluid. IMPRESSION: 1. Cardiomegaly but no definite acute disease. Signer Name: Antonino Yo MD Signed: 02/22/2020 5:03 PM Workstation Name: [id number] Transcribed By: TM Dictated By: Antonino Yo MD Electronically Authenticated By: Antonino Yo MD Signed Date/Time: 02/22/201702 DD/ 01 TD/TT: - Medical Decision Making Differential diagnosis, including but not limited to: CHF exacerbation, acute coronary syndrome, pneumonia, pulmonary embolism, obstructive sleep apnea, pulmonary hypertension Assessment and plan: 54-year-old gentleman, with numerous cardiovascular comorbidities, including hypertension, obesity, tobacco consumption, who is not currently tachycardic, tachypneic or hypoxic, who denies DVT, pulmonary embolism risk factors, who is low risk by Wells criteria, with chest pain, shortness of breath, orthopnea, lower extremity swelling, cardiomegaly, suspect acute congestive heart failure. Patient moderate risk for major adverse cardiac event as per heart score. Patient states no contraindications to nitroglycerin (does not take erectile dysfunction medication.) No recent cardiac risk ratification, no definitive pulmonary evaluation. We have recommended admission for diuresis, and accelerated cardiac risk ratification. Discussed this with the patient, who verbalized understanding, and is amenable to this plan of care. Hospital physician, Dr. Robe Dumont to admit Transaminitis is likely secondary to congestive hepatopathy, likely secondary to congestive heart failure. Critical Care Time: Yes Critical care time in (mins) excluding proc time.: 35 Critical care attestation.: If time is entered above; I have spent that time in minutes in the direct care of this critically ill patient, excluding procedure time. ED Disposition Clinical Impression: Acute chest pain, Acute CHF Disposition: 09 OP ADMIT IP TO THIS HOSP Is pt being admited?: Yes Does the pt Need Aspirin: No Condition: Good Instructions: Chest Pain (ED) Referrals: PRIMARY CARE, [Primary Care Provider] - 3-5 Days Heart Score - HEART Score History: Moderately suspicious EKG: Non-specific Age: 45-65 Risk factors: 1-2 risk factors Troponin: < normal limit HEART Score: 4 - Critical Actions Critical Actions: 4-6 pts:12-16.6% risk of adverse cardiac event. Should be admitted
[2020-02-22] MEDS ORDERED: ASPIRIN 81 MG TAB CHEW PO ONE (18:34)
[2020-02-22] MEDS ORDERED: NITROGLYCERIN 0.4 MG TAB SUBL SL PRN (18:34)
[2020-02-22] MEDS ORDERED: FUROSEMIDE 40 MG/4 ML INJ IV ONE (18:34)
[2020-02-22] MEDS ORDERED: amLODIPine 5 MG TAB PO ONE (18:40)
[2020-02-22 18:52] LABS: INR 1.3 (0.87-1.13)
--- NOTE | 2020-02-22 19:58 | Cat Scan Report ---
CT angio chest INDICATION: cp dyspnea + d dimer, cardiomegaly. TECHNIQUE: All CT scans at this location are performed using CT dose reduction for ALARA by means of automated e xposure control. MIP and/or 3-D reconstruction images were produced. COMPARISON: None available. FINDINGS: Multiple very slightly enlarged nodes are demonstrated in the anterior mediastinum, aortopulmonary wi ndow and pretracheal region. There are also slightly enlarged nodes in both axillae, more prominent o n the left. Upper abdomen is negative. Heart is slightly enlarged. Small right pleural effusion. Mild interstitial disease suggests slight pulmonary edema. More focal d isease in the right base is probably atelectasis. No evidence of pulmonary embolus. IMPRESSION: 1. Cardiomegaly with interstitial disease (probably edema) and small right pleural effusion, most sug gestive of mild congestive failure. 2. Negative for pulmonary embolus. Signer Name: Antonino Yo MD Signed: 02/22/2020 7:53 PM Workstation Name: [id number]
[2020-02-22] MEDS ORDERED: NITROGLYCERIN 2% OINT 1 GM TP ONE (22:24)
[2020-02-22] MEDS ORDERED: ACETAMINOPHEN 325 MG TAB PO PRN ×2 (23:14→23:15)
[2020-02-22] MEDS ORDERED: METOCLOPRAMIDE 10 MG/2 ML INJ IV PRN (23:15)
[2020-02-22] MEDS ORDERED: HYDROmorphone 1 MG/1 ML INJ IV PRN (23:15)
[2020-02-22] MEDS ORDERED: ONDANSETRON 4 MG/2 ML INJ IV PRN (23:15)
[2020-02-22] MEDS ORDERED: oxyCODONE /ACETAMINOPHEN 5-325MG TAB PO PRN (23:15)
--- NOTE | 2020-02-22 23:30 | History and Physical Report ---
History of Present Illness Date of examination: 02/22/20 Date of admission: 02/22/20 18:41 Chief complaint: Shortness of breath on minimal exertion for 1 week History of present illness: 54-year-old male with history of hypertension gout nicotine dependence and COPD comes in for shortness of breath on minimal exertion and orthopnea and class IV NYHA symptoms. Patient has been getting short of breath with minimal exertion for 1 week. Patient has no prior history of congestive heart failure. No cough. No chest pain. No PND attacks. No exposure to coronavirus. No syncope. - Past Medical History Previous Medical History?: Yes Hypertension: Yes Arthritis: Yes Additional medical history: Gout, arthritis - Surgical History Past Surgical History?: No - Social History Smoking Status: Current Every Day Smoker Substance Use Type: Alcohol -Family History htn - Medications Home Medications: Home Medications Medication Instructions Recorded Confirmed Last Taken Type Acetaminophen [Acetaminophen TAB] 325 mg PO Q6H PRN #15 tablet 07/23/19 02/22/20 Unknown Rx Review of Systems ROS: Stated complaint: SOB/WEAKNESS Other details as noted in HPI Constitutional: malaise, weakness, other (No loss of taste, no loss of smell). denies: fever ENT: congestion Cardiovascular: chest pain, orthopnea, edema Gastrointestinal: abdominal pain, nausea. denies: vomiting, hematemesis, melena, hematochezia Genitourinary: denies: dysuria Musculoskeletal: myalgia Skin: denies: lesions Neurological: weakness Hematological/Lymphatic: denies: easy bleeding Medications and Allergies Allergies Allergy/AdvReac Type Severity Reaction Status Date / Time No Known Allergies Allergy Verified 03/03/15 22:21 Home Medications Medication Instructions Recorded Confirmed Last Taken Type Acetaminophen [Acetaminophen TAB] 325 mg PO Q6H PRN #15 tablet 07/23/19 02/22/20 Unknown Rx Active Meds: Active Medications Nitroglycerin (Nitrostat) 0.4 mg SL .Q5MIN PRN PRN Reason: Chest Pain Exam - Constitutional Vitals: Temp Pulse Resp BP Pulse Ox 98.2 F 81 20 174/118 100 02/22/20 20:00 02/22/20 20:00 02/22/20 20:00 02/22/20 20:00 02/22/20 20:00 General appearance: Present: mild distress, well-nourished - EENT Eyes: Present: PERRL ENT: hearing intact, clear oral mucosa - Neck Neck: Present: supple, normal ROM - Respiratory Respiratory effort: normal Respiratory: bilateral: CTA - Cardiovascular Heart rate: 78 Rhythm: regular Heart Sounds: Present: S1 & S2. Absent: rub, click - Extremities Extremities: no ischemia, pulses intact, pulses symmetrical, No edema Peripheral Pulses: within normal limits - Abdominal General gastrointestinal: Present: soft, non-tender, non-distended, normal bowel sounds Male genitourinary: Present: normal - Rectal Rectal Exam: deferred - Integumentary Integumentary: Present: clear, warm, dry - Musculoskeletal Musculoskeletal: gait normal, strength equal bilaterally - Psychiatric Psychiatric: appropriate mood/affect, intact judgment & insight - Neurologic Neurologic: CNII-XII intact, moves all extremities - Allied Health Allied health notes reviewed: nursing, case management HEART Score - HEART Score EKG: Non-specific Age: 45-65 Risk factors: 1-2 risk factors Troponin: Troponin T < 0.010 ng/mL (0.00-0.029) 02/22/20 18:10 Troponin: < normal limit - Critical Actions Critical Actions: 4-6 pts:12-16.6% risk of adverse cardiac event. Should be admitted Results - Labs CBC & Chem 7: 02/22/20 16:38 02/22/20 16:38 Labs: Laboratory Last Values WBC 8.7 K/mm3 (4.5-11.0) 02/22/20 16:38 RBC 5.19 M/mm3 (3.65-5.03) H 02/22/20 16:38 Hgb 15.2 gm/dl (11.8-15.2) 02/22/20 16:38 Hct 46.5 % (35.5-45.6) H 02/22/20 16:38 MCV 90 fl (84-94) 02/22/20 16:38 MCH 29 pg (28-32) 02/22/20 16:38 MCHC 33 % (32-34) 02/22/20 16:38 RDW 15.6 % (13.2-15.2) H 02/22/20 16:38 Plt Count 256 K/mm3 (140-440) 02/22/20 16:38 Lymph % (Auto) 31.8 % (13.4-35.0) 02/22/20 16:38 [place] % (Auto) 7.0 % (0.0-7.3) 02/22/20 16:38 Eos % (Auto) 2.3 % (0.0-4.3) 02/22/20 16:38 Baso % (Auto) 1.1 % (0.0-1.8) 02/22/20 16:38 Lymph # (Auto) 2.8 K/mm3 (1.2-5.4) 02/22/20 16:38 [place] # (Auto) 0.6 K/mm3 (0.0-0.8) 02/22/20 16:38 Eos # (Auto) 0.2 K/mm3 (0.0-0.4) 02/22/20 16:38 Baso # (Auto) 0.1 K/mm3 (0.0-0.1) 02/22/20 16:38 Seg Neutrophils % 57.8 % (40.0-70.0) 02/22/20 16:38 Seg Neutrophils # 5.0 K/mm3 (1.8-7.7) 02/22/20 16:38 PT 16.4 Sec. (12.2-14.9) H 02/22/20 18:10 INR 1.30 (0.87-1.13) H 02/22/20 18:10 D-Dimer 392.93 ng/mlDDU (0-234) H 02/22/20 18:10 Sodium 140 mmol/L (137-145) 02/22/20 16:38 Potassium 4.7 mmol/L (3.6-5.0) 02/22/20 16:38 Chloride 108.6 mmol/L (98-107) H 02/22/20 16:38 Carbon Dioxide 20 mmol/L (22-30) L 02/22/20 16:38 Anion Gap 16 mmol/L 02/22/20 16:38 BUN 28 mg/dL (9-20) H 02/22/20 16:38 Creatinine 1.0 mg/dL (0.8-1.3) 02/22/20 16:38 Estimated GFR > 60 ml/min 02/22/20 16:38 BUN/Creatinine Ratio 28 % 02/22/20 16:38 Glucose 98 mg/dL (75-100) 02/22/20 16:38 Calcium 9.2 mg/dL (8.4-10.2) 02/22/20 16:38 Magnesium 2.00 mg/dL (1.7-2.3) 02/22/20 18:10 Total Bilirubin 1.00 mg/dL (0.1-1.2) 02/22/20 16:38 AST 75 units/L (5-40) H 02/22/20 16:38 ALT 71 units/L (7-56) H 02/22/20 16:38 Alkaline Phosphatase 171 units/L (35-129) H 02/22/20 16:38 Total Creatine Kinase 305 units/L (55-170) H 02/22/20 18:10 Troponin T < 0.010 ng/mL (0.00-0.029) 02/22/20 18:10 NT-Pro-B Natriuret Pep 6093 pg/mL (0-900) H 02/22/20 16:38 Total Protein 6.5 g/dL (6.3-8.2) 02/22/20 16:38 Albumin 3.8 g/dL (3.9-5) L 02/22/20 16:38 Albumin/Globulin Ratio 1.4 % 02/22/20 16:38 - Imaging and Cardiology EKG: report reviewed (Sinus rhythm LVH pattern) Chest x-ray: report reviewed Imaging and Cardiology: Chest x-ray Cardiomegaly but no definite acute disease Assessment and Plan Advance Directives: Yes (Full code) VTE prophylaxis?: Chemical Plan of care discussed with patient/family: Yes - Patient Problems (1) Acute respiratory failure with hypoxia Current Visit: No Status: Acute Plan to address problem: Secondary to CHF Should correct with correction of pulmonary vascular congestion (2) Acute exacerbation of CHF (congestive heart failure) Current Visit: Yes Status: Acute Qualifiers: Heart failure type: diastolic Qualified Code(s): I50.33 - Acute on chronic diastolic (congestive) heart failure Plan to address problem: New onset CHF IV Lasix 40 mg every 12 KCl 20 mEq every 12 Intake output Daily Daily weight Echocardiogram for ejection fraction and valvular function Cardiology consult (3) Hypertensive emergency Current Visit: No Status: Acute Plan to address problem: Continue antihypertensives and adjust medications IV labetalol 10 mg every 3 as needed IV hydralazine not available on backorder. (4) Nicotine dependence Current Visit: Yes Status: Chronic Qualifiers: Nicotine product type: cigarettes Plan to address problem: NicoDerm patch Counseled about stopping smoking (5) DVT prophylaxis Current Visit: No Status: Acute Plan to address problem: On heparin and GI prophylaxis
[2020-02-23] MEDS: carvediloL 6.25 MG TAB PO SCH ×3 (02:58→21:06)
[2020-02-23] MEDS: POTASSIUM CHLORIDE ER 20 MEQ TAB PO SCH ×2 (02:58→09:14)
[2020-02-23] MEDS: VALSARTAN 160MG TAB PO SCH ×3 (02:58→21:05)
[2020-02-23] MEDS: FUROSEMIDE 40 MG/4 ML INJ IV SCH ×2 (05:18→17:24)
[2020-02-23 07:51] LABS: Basophils # (Auto) 0.1 K/mm3 (0.0-0.1); Basophils % (Auto) 1.3 % (0.0-1.8); Eosinophils # (Auto) 0.3 K/mm3 (0.0-0.4); Eosinophils % (Auto) 3.6 % (0.0-4.3); Hematocrit 46.9 % (35.5-45.6); Hemoglobin 15.6 gm/dl (11.8-15.2); Lymphocytes # (Auto) 2.2 K/mm3 (1.2-5.4); Lymphocytes % (Auto) 30.5 % (13.4-35.0); Mean Corpuscular HGB Conc 33 % (32-34); Mean Corpuscular Volume 88 fl (84-94); Monocytes # (Auto) 0.5 K/mm3 (0.0-0.8); Monocytes % (Auto) 7.3 % (0.0-7.3); Platelet Count 258 K/mm3 (140-440); Red Blood Count 5.34 M/mm3 (3.65-5.03); Red Cell Distribution Width 15.1 % (13.2-15.2)
[2020-02-23 08:14] LABS: Alanine Aminotransferase 62 units/L (7-56); Albumin 3.6 g/dL (3.9-5); BUN/Creatinine Ratio 20; Blood Urea Nitrogen 22 mg/dL (9-20); Calcium 9.2 mg/dL (8.4-10.2); Hemolysis Index 8
[2020-02-23] MEDS: FAMOTIDINE 20 MG TAB PO SCH ×2 (09:15→21:05)
--- NOTE | 2020-02-23 15:19 | Consultation ---
History of Present Illness Consult date: 02/23/20 Consult reason: congestive heart failure History of present illness: The patient is a 54-year-old man who gives a history of chronic hypertension for which he is not compliant with medical therapy or routine physician outpatient evaluation. He has chronic tobacco abuse. He denies any known prior cardiac history, and no prior cardiac work-up. He presents to the hospital with several days of shortness of breath and fatigue. He was seen in the emergency room, evaluated and referred for admission. Cardiac consultation was requested for assessment of possible new onset congestive heart failure. His ECG is normal sinus rhythm, occasional PAC, left ventricular hypertrophy with repolarization abnormalities of LVH. Chest x-ray was abnormal with marked cardiomegaly, and a CT of the chest did reveal mild interstitial pulmonary edema. Laboratory values mostly showed mild to moderate increasing liver transaminases. An echocardiogram done today reveals a four-chamber dilated cardiomyopathy, left ventricular ejection fraction about 20%. Past History Past Medical History: hypertension Social history: smoking Medications and Allergies Allergies Allergy/AdvReac Type Severity Reaction Status Date / Time No Known Allergies Allergy Verified 03/03/15 22:21 Home Medications Medication Instructions Recorded Confirmed Last Taken Type Acetaminophen [Acetaminophen TAB] 325 mg PO Q6H PRN #15 tablet 07/23/19 02/22/20 Unknown Rx Active Meds: Active Medications Acetaminophen (Tylenol) 650 mg PO Q4H PRN PRN Reason: Pain MILD(1-3)/Fever >100.5/FRANCO Carvedilol (Coreg) 6.25 mg PO BID [facility] Last Admin: 02/23/20 09:13 Dose: 6.25 mg Documented by: Famotidine (Pepcid) 20 mg PO BID [facility] Last Admin: 02/23/20 09:15 Dose: 20 mg Documented by: Furosemide (Lasix) 40 mg IV 0600,1800 [facility] Last Admin: 02/23/20 05:18 Dose: 40 mg Documented by: Hydromorphone HCl (Dilaudid) 0.5 mg IV Q3H PRN PRN Reason: Pain , Severe (7-10) Labetalol HCl (Labetalol) 20 mg IV Q3H PRN PRN Reason: Blood Pressure Metoclopramide HCl (Reglan) 10 mg IV Q6H PRN PRN Reason: Nausea And Vomiting Nitroglycerin (Nitrostat) 0.4 mg SL .Q5MIN PRN PRN Reason: Chest Pain Ondansetron HCl (Zofran) 4 mg IV Q8H PRN PRN Reason: Nausea And Vomiting Oxycodone/Acetaminophen (Percocet 5/325) 1 tab PO Q6H PRN PRN Reason: Pain, Moderate (4-6) Sodium Chloride (Sodium Chloride Flush Syringe 10 Ml) 10 ml IV BID [facility] Last Admin: 02/23/20 09:15 Dose: 10 ml Documented by: Sodium Chloride (Sodium Chloride Flush Syringe 10 Ml) 10 ml IV PRN PRN PRN Reason: LINE FLUSH Valsartan (Diovan) 160 mg PO Q12HR [facility] Last Admin: 02/23/20 09:15 Dose: 160 mg Documented by: Review of Systems Cardiovascular: orthopnea, shortness of breath, no chest pain, no palpitations, no rapid/irregular heart beat, no edema, no syncope, no lightheadedness Physical Examination Vital Signs Temp Pulse Resp BP Pulse Ox 97.9 F 89 18 173/123 99 02/22/20 12:26 02/22/20 12:26 02/22/20 12:26 02/22/20 12:26 02/22/20 12:26 General appearance: no acute distress HEENT: Positive: PERRL Neck: Positive: neck supple Cardiac: Positive: Reg Rate and Rhythm Lungs: Positive: Decreased Breath Sounds Neuro: Positive: Grossly Intact Abdomen: Positive: Soft Male genitourinary: Positive: deferred Skin: Positive: Clear Extremities: Absent: edema Results 02/23/20 06:18 02/23/20 06:18 Cardiac Enzymes 02/22/20 02/23/20 Range/Units 16:38 06:18 AST 75 H 61 H (5-40) units/L Coagulation 02/22/20 Range/Units 18:10 PT 16.4 H (12.2-14.9) Sec. INR 1.30 H (0.87-1.13) CBC 02/22/20 02/23/20 Range/Units 16:38 06:18 WBC 8.7 7.3 (4.5-11.0) K/mm3 RBC 5.19 H 5.34 H (3.65-5.03) M/mm3 Hgb 15.2 15.6 H (11.8-15.2) gm/dl Hct 46.5 H 46.9 H (35.5-45.6) % Plt Count 256 258 (140-440) K/mm3 Lymph # (Auto) 2.8 2.2 (1.2-5.4) K/mm3 [place] # (Auto) 0.6 0.5 (0.0-0.8) K/mm3 Eos # (Auto) 0.2 0.3 (0.0-0.4) K/mm3 Baso # (Auto) 0.1 0.1 (0.0-0.1) K/mm3 Comprehensive Metabolic Panel 02/22/20 02/23/20 Range/Units 16:38 06:18 Sodium 140 144 (137-145) mmol/L Potassium 4.7 3.6 D (3.6-5.0) mmol/L Chloride 108.6 H 106.0 (98-107) mmol/L Carbon Dioxide 20 L 26 (22-30) mmol/L BUN 28 H 22 H (9-20) mg/dL Creatinine 1.0 1.1 (0.8-1.3) mg/dL Glucose 98 84 (75-100) mg/dL Calcium 9.2 9.2 (8.4-10.2) mg/dL AST 75 H 61 H (5-40) units/L ALT 71 H 62 H (7-56) units/L Alkaline Phosphatase 171 H 156 H (35-129) units/L Total Protein 6.5 6.4 (6.3-8.2) g/dL Albumin 3.8 L 3.6 L (3.9-5) g/dL EKG interpretations - Telemetry EKG Rhythm: Sinus Rhythm Assessment and Plan - Patient Problems (1) Acute exacerbation of CHF (congestive heart failure) Current Visit: Yes Status: Acute Qualifiers: Heart failure type: diastolic Qualified Code(s): I50.33 - Acute on chronic diastolic (congestive) heart failure Plan to address problem: 54-year-old man with a history of chronic hypertension for which she was not receiving treatment, presents with clinical findings of new onset fluid overload and congestive heart failure. An echocardiogram does reveal a four-chamber dilated cardiomyopathy with left ventricular ejection fraction 20%. We will recommend aggressive blood pressure management, afterload agents, diuretics, spironolactone. Carvedilol beta-tyrone therapy to be initiated after fluid overload is resolved. Further cardiac evaluation and management will depend on clinical course. He will ultimately need a myocardial perfusion study for ischemic assessment prior to discharge.
[2020-02-23] MEDS: SPIRONOLACTONE 25 MG TAB PO SCH (17:24)
--- NOTE | 2020-02-23 21:31 | Progress Note ---
Assessment and Plan - Patient Problems (1) Acute respiratory failure with hypoxia Current Visit: No Status: Acute Plan to address problem: Secondary to CHF Should correct with correction of pulmonary vascular congestion Improved (2) Acute exacerbation of CHF (congestive heart failure) Current Visit: Yes Status: Acute Qualifiers: Heart failure type: diastolic Qualified Code(s): I50.33 - Acute on chronic diastolic (congestive) heart failure Plan to address problem: New onset CHF IV Lasix 40 mg every 12 KCl 20 mEq every 12 Intake output Daily Daily weight Echocardiogram for ejection fraction and valvular function==20 percent EF Cardiology consult (3) Hypertensive emergency Current Visit: No Status: Acute Plan to address problem: Continue antihypertensives and adjust medications IV labetalol 10 mg every 3 as needed IV hydralazine not available on backorder. (4) Nicotine dependence Current Visit: Yes Status: Chronic Qualifiers: Nicotine product type: cigarettes Plan to address problem: NicoDerm patch Counseled about stopping smoking (5) DVT prophylaxis Current Visit: No Status: Acute Plan to address problem: On heparin and GI prophylaxis Subjective Date of service: 02/23/20 Principal diagnosis: New onset CHF Interval history: 54-year-old male with history of hypertension gout nicotine dependence and COPD comes in for shortness of breath on minimal exertion and orthopnea and class IV NYHA symptoms. Patient has been getting short of breath with minimal exertion for 1 week. Patient has no prior history of congestive heart failure. No cough. No chest pain. No PND attacks. No exposure to coronavirus. No syncope. Ejection fraction was 20% Objective - Constitutional Vitals: Vital Signs - 12hr 02/23/20 02/23/20 02/23/20 11:42 16:05 19:25 Temperature 98.2 F 98.3 F 97.3 F L Pulse Rate 84 80 72 Respiratory 20 16 Rate Blood Pressure 147/101 140/105 125/81 O2 Sat by Pulse 93 95 97 Oximetry 02/23/20 02/23/20 21:05 21:06 Temperature Pulse Rate 72 74 Respiratory Rate Blood Pressure 136/94 136/94 O2 Sat by Pulse Oximetry General appearance: Present: no acute distress, well-nourished - EENT Eyes: PERRL, EOM intact ENT: hearing intact, clear oral mucosa Ears: bilateral: normal - Neck Neck: supple, normal ROM - Respiratory Respiratory effort: normal Respiratory: bilateral: CTA - Breasts Breasts: normal - Cardiovascular Heart rate: 78 Rhythm: regular Heart Sounds: Present: S1 & S2. Absent: gallop, rub Extremities: pulses intact, No edema, normal color, Full ROM - Gastrointestinal General gastrointestinal: Present: soft, non-tender, non-distended, normal bowel sounds - Genitourinary Male genitourinary: normal - Integumentary Integumentary: clear, warm, dry - Musculoskeletal Musculoskeletal: 1, strength equal bilaterally - Neurologic Neurologic: moves all extremities - Psychiatric Psychiatric: memory intact, appropriate mood/affect, intact judgment & insight - Labs CBC & Chem 7: 02/23/20 06:18 02/23/20 06:18 Labs: Abnormal lab results 02/23/20 02/23/20 02/23/20 Range/Units 06:18 06:18 06:18 RBC 5.34 H (3.65-5.03) M/mm3 Hgb 15.6 H (11.8-15.2) gm/dl Hct 46.9 H (35.5-45.6) % BUN 22 H (9-20) mg/dL Hemoglobin A1c 6.4 H (4-6) % Total Bilirubin 1.30 H (0.1-1.2) mg/dL AST 61 H (5-40) units/L ALT 62 H (7-56) units/L Alkaline Phosphatase 156 H (35-129) units/L Albumin 3.6 L (3.9-5) g/dL HEART Score - HEART Score EKG: Non-specific Age: 45-65 Risk factors: 1-2 risk factors Troponin: Troponin T < 0.010 ng/mL (0.00-0.029) 02/22/20 18:10 Troponin: < normal limit - Critical Actions Critical Actions: 4-6 pts:12-16.6% risk of adverse cardiac event. Should be admitted
[2020-02-24] MEDS: FUROSEMIDE 40 MG/4 ML INJ IV SCH ×2 (06:17→17:35)
[2020-02-24] MEDS: SPIRONOLACTONE 25 MG TAB PO SCH (09:53)
[2020-02-24] MEDS: carvediloL 6.25 MG TAB PO SCH ×2 (09:53→21:27)
[2020-02-24] MEDS: VALSARTAN 160MG TAB PO SCH ×2 (09:54→21:27)
[2020-02-24] MEDS: FAMOTIDINE 20 MG TAB PO SCH ×2 (09:54→21:27)
[2020-02-24] MEDS ORDERED: ASPIRIN EC 81 MG TAB PO SCH (10:00)
--- NOTE | 2020-02-24 11:46 | Progress Note ---
Assessment and Plan Acute CHF exacerbation, new onset echocardiogram reveals a four-chamber dilated cardiomyopathy, left ventricular ejection fraction about 20%. Chronic hypertension, uncontrolled Non compliant with medical therapy or routine physician outpatient evaluation. Chronic tobacco abuse Elevated liver transaminases Continue medical therapy for systolic heart failure. Advised sodium and fluid restrictions. Myocardial perfusion study for ischemic assessment prior to discharge. Subjective Date of service: 02/24/20 Interval history: Patient is resting in bed comfortably. No cardiac events reported. Objective Vital Signs Temp Pulse Pulse Resp BP Pulse Ox 02/24/20 09:54 79 146/100 02/24/20 09:53 79 146/100 02/24/20 08:01 98.0 F 18 146/100 02/24/20 03:17 97.5 F L 79 16 145/106 94 02/24/20 00:00 76 15 02/23/20 23:04 98.1 F 74 16 138/100 96 02/23/20 22:00 70 02/23/20 21:06 74 136/94 02/23/20 21:05 72 136/94 02/23/20 19:25 97.3 F L 72 16 125/81 97 02/23/20 16:05 98.3 F 80 140/105 95 - Physical Examination General: No Apparent Distress HEENT: Positive: PERRL Neck: Positive: neck supple Cardiac: Positive: Reg Rate and Rhythm Lungs: Positive: Decreased Breath Sounds Neuro: Positive: Grossly Intact Abdomen: Positive: Soft Extremities: Present: edema
--- NOTE | 2020-02-24 20:06 | Progress Note ---
Assessment and Plan - Patient Problems (1) Acute respiratory failure with hypoxia Current Visit: No Status: Acute Plan to address problem: Secondary to CHF Improving Stilll has orthopnea (2) Acute exacerbation of CHF (congestive heart failure) Current Visit: Yes Status: Acute Qualifiers: Heart failure type: diastolic Qualified Code(s): I50.33 - Acute on chronic diastolic (congestive) heart failure Plan to address problem: New onset CHF IV Lasix 40 mg every 12 KCl 20 mEq every 12 Intake output Daily Daily weight Echocardiogram for ejection fraction and valvular function Cardiology consult (3) Hypertensive emergency Current Visit: No Status: Acute Plan to address problem: Blood pressure is improved (4) Nicotine dependence Current Visit: Yes Status: Chronic Qualifiers: Nicotine product type: cigarettes Plan to address problem: NicoDerm patch Counseled about stopping smoking (5) DVT prophylaxis Current Visit: No Status: Acute Plan to address problem: On heparin and GI prophylaxis Subjective Date of service: 02/24/20 Principal diagnosis: CHF exacerbation Interval history: 54-year-old male with history of hypertension gout nicotine dependence and COPD comes in for shortness of breath on minimal exertion and orthopnea and class IV NYHA symptoms. Patient has been getting short of breath with minimal exertion for 1 week. Patient has no prior history of congestive heart failure. No cough. No chest pain. No PND attacks. No exposure to coronavirus. No syncope. Ejection fraction was 20% Day 3 02/24/2020 Patient was explained about there is a new onset CHF and the need for follow-up and taking his medications regularly and exercise Patient to get a stress test tomorrow morning Objective - Constitutional Vitals: Vital Signs - 12hr 02/24/20 02/24/20 02/24/20 09:53 09:54 12:00 Temperature Pulse Rate 79 79 Pulse Rate [ 76 From Monitor] Respiratory 15 Rate Blood Pressure 146/100 146/100 O2 Sat by Pulse Oximetry 02/24/20 16:26 Temperature 97.5 F L Pulse Rate 68 Pulse Rate [ From Monitor] Respiratory 18 Rate Blood Pressure 136/96 O2 Sat by Pulse 96 Oximetry General appearance: Present: no acute distress, well-nourished - EENT Eyes: PERRL, EOM intact ENT: hearing intact, clear oral mucosa Ears: bilateral: normal - Neck Neck: supple, normal ROM - Respiratory Respiratory effort: normal Respiratory: bilateral: CTA - Breasts Breasts: normal - Cardiovascular Heart rate: 88 Rhythm: regular Heart Sounds: Present: S1 & S2. Absent: gallop, rub Extremities: pulses intact, No edema, normal color, Full ROM - Gastrointestinal General gastrointestinal: Present: soft, non-tender, non-distended, normal bowel sounds - Genitourinary Male genitourinary: normal - Integumentary Integumentary: clear, warm, dry - Musculoskeletal Musculoskeletal: 1, strength equal bilaterally - Neurologic Neurologic: moves all extremities - Psychiatric Psychiatric: memory intact, appropriate mood/affect, intact judgment & insight - Allied health notes Allied health notes reviewed: nursing, case management - Labs CBC & Chem 7: 02/23/20 06:18 02/23/20 06:18 HEART Score - HEART Score EKG: Non-specific Age: 45-65 Risk factors: 1-2 risk factors Troponin: Troponin T < 0.010 ng/mL (0.00-0.029) 02/22/20 18:10 Troponin: < normal limit - Critical Actions Critical Actions: 4-6 pts:12-16.6% risk of adverse cardiac event. Should be admitted
[2020-02-24 22:31] VITALS: BP 147/107
[2020-02-25] MEDS ORDERED: ASPIRIN EC 81 MG TAB PO ONE ×2 (07:47→10:04)
[2020-02-25] MEDS ORDERED: FAMOTIDINE 20 MG TAB ONE (10:04)
[2020-02-25] MEDS ORDERED: VALSARTAN 160MG TAB ONE (10:04)
[2020-02-25] MEDS ORDERED: carvediloL 6.25 MG TAB ONE (10:04)
[2020-02-25] MEDS ORDERED: SPIRONOLACTONE 25 MG TAB ONE (10:04)
--- NOTE | 2020-02-25 18:04 | Progress Note ---
Assessment and Plan - Patient Problems (1) Acute exacerbation of CHF (congestive heart failure) Current Visit: Yes Status: Acute Qualifiers: Heart failure type: diastolic Qualified Code(s): I50.33 - Acute on chronic diastolic (congestive) heart failure Plan to address problem: 54-year-old man with a history of chronic hypertension for which he was not receiving treatment, presents with clinical findings of new onset fluid overload and congestive heart failure. An echocardiogram does reveal a four-chamber dilated cardiomyopathy with left ventricular ejection fraction 20%. He looks and feels better with aggressive blood pressure management, afterload agents, diuretics and spironolactone. We recommended that he gets a predischarge Lexiscan thallium stress test tomorrow, but the patient prefers to go home today and come to the office within a week for follow-up and ischemic assessment. Subjective Date of service: 02/25/20 Interval history: Patient is comfortable, no chest pain, no shortness of breath, his symptoms has improved. He wants to go home today. Objective Vital Signs Temp Pulse Resp BP Pulse Ox 02/24/20 22:10 97.2 F L 70 16 147/107 98 02/24/20 21:27 68 136/96 02/24/20 21:04 18 02/24/20 20:27 98.0 F 70 16 162/107 96 - Physical Examination General: No Apparent Distress HEENT: Positive: PERRL Neck: Positive: neck supple Cardiac: Positive: Reg Rate and Rhythm Lungs: Positive: Decreased Breath Sounds Neuro: Positive: Grossly Intact Abdomen: Positive: Soft Skin: Positive: Clear Extremities: Present: edema - Imaging and Cardiology EKG: report reviewed (Sinus rhythm LVH pattern)
--- NOTE | 2020-02-25 22:15 | Discharge Summary ---
Providers - Providers Date of Admission: 02/23/20 18:00 Date of discharge: 02/25/20 Attending physician: ELVIS MORRISON 02/22/20 23:15 Consult to Physician [CONS] Routine Comment: Consulting Provider: JARETH PELAYO Physician Instructions: Reason For Exam: New onset CHF Primary care physician: CHAIR INSPECTOR Hospitalization Condition: Good Hospital course: (1) Acute exacerbation of CHF (congestive heart failure) Current Visit: Yes Status: Acute Qualifiers: Heart failure type: diastolic Qualified Code(s): I50.33 - Acute on chronic diastolic (congestive) heart failure Plan to address problem: 54-year-old man with a history of chronic hypertension for which he was not receiving treatment, presents with clinical findings of new onset fluid overload and congestive heart failure. An echocardiogram does reveal a four-chamber dilated cardiomyopathy with left ventricular ejection fraction 20%. He looks and feels better with aggressive blood pressure management, afterload agents, diuretics and spironolactone. We recommended that he gets a predischarge Lexiscan thallium stress test tomorrow, but the patient prefers to go home today and come to the office within a week for follow-up and ischemic assessment. : New onset CHF Discharge on Lasix 40 mg po qd KCl 10 meq po qd Spironolactone 50 mg po qd Daily weight EF 20 percent F/u with cardiology for Lexiscan as out patient (2) Acute respiratory failure with hypoxia Current Visit: No Status: Acute Plan to address problem: Secondary to CHF Improving (3) Hypertensive emergency Current Visit: No Status: Acute Plan to address problem: Blood pressure is improved Discharge on valsartan 160 mg po qd Coreg 6.25 bid (4) Nicotine dependence Current Visit: Yes Status: Chronic Qualifiers: Nicotine product type: cigarettes Plan to address problem: NicoDerm patch Counseled about stopping smoking Disposition: DC-01 TO HOME OR SELFCARE Time spent for discharge: 35 minutes - Discharge Diagnoses (1) Acute respiratory failure with hypoxia Status: Acute (2) Acute exacerbation of CHF (congestive heart failure) Status: Acute Qualifiers: Heart failure type: diastolic Qualified Code(s): I50.33 - Acute on chronic diastolic (congestive) heart failure (3) Hypertensive emergency Status: Acute (4) Nicotine dependence Status: Chronic Qualifiers: Nicotine product type: cigarettes (5) DVT prophylaxis Status: Acute Core Measure Documentation - Palliative Care Palliative Care/ Comfort Measures: Not Applicable - Core Measures Any of the following diagnoses?: none Exam - Constitutional Vitals: Temp Pulse Resp BP Pulse Ox 97.2 F L 70 16 147/107 98 02/24/20 22:10 02/24/20 22:10 02/24/20 22:10 02/24/20 22:10 02/24/20 22:10 General appearance: Present: no acute distress, well-nourished - EENT Eyes: Present: PERRL ENT: hearing intact, clear oral mucosa - Neck Neck: Present: supple, normal ROM - Respiratory Respiratory effort: normal Respiratory: bilateral: CTA - Cardiovascular Heart Sounds: Present: S1 & S2. Absent: rub, click - Extremities Extremities: pulses symmetrical, No edema Peripheral Pulses: within normal limits - Abdominal General gastrointestinal: Present: soft, non-tender, non-distended, normal bowel sounds Male genitourinary: Present: normal - Integumentary Integumentary: Present: clear, warm, dry - Musculoskeletal Musculoskeletal: gait normal, strength equal bilaterally - Psychiatric Psychiatric: appropriate mood/affect, intact judgment & insight - Neurologic Neurologic: CNII-XII intact, moves all extremities Plan Activity: no restrictions Diet: low fat, low cholesterol, low salt Follow up with: CARI GONZÁLES MD [Primary Care Provider] - 3-5 Days JARETH PELAYO MD [Staff Physician] - 7 Days
== END 2020-02-25 15:48 | disposition home or self-care (01) | DRG 291 ==
LOC: ED 11:54 → 4A 18:41 → OBSVTOIN 02-23 18:00
PROVIDERS: ADMIT Internal Medicine; ATTEND Internal Medicine
DX: I11.0 Hypertensive heart disease with heart failure (principal); J96.01 Acute respiratory failure with hypoxia; I16.1 Hypertensive emergency; I42.0 Dilated cardiomyopathy; I50.33 Acute on chronic diastolic (congestive) heart failure; F17.210 Nicotine dependence, cigarettes, uncomplicated; M19.90 Unspecified osteoarthritis, unspecified site; M10.9 Gout, unspecified; Z72.89 Other problems related to lifestyle; Z82.49 Family history of ischemic heart disease and other diseases of the circulatory system; Z91.14 Patient's other noncompliance with medication regimen; Z79.899 Other long term (current) drug therapy; Z71.6 Tobacco abuse counseling
CPT/HCPCS: 36415; 71046; 71275; 80053; 82550; 83036; 83735; 83880; 84484; 85025; 85379; 85610; 93005; 93306; 96374; 96375; 99406; G0378; J1940; Q9967

== ENCOUNTER 2020-04-28 09:41 | Day surgery (SDC) | payer OTHER ==
[2020-04-28 10:43] LABS: Basophils # (Auto) 0.1 K/mm3 (0.0-0.1); Basophils % (Auto) 1.2 % (0.0-1.8); Eosinophils # (Auto) 0.2 K/mm3 (0.0-0.4); Eosinophils % (Auto) 3.1 % (0.0-4.3); Hematocrit 44.7 % (35.5-45.6); Lymphocytes % (Auto) 26.7 % (13.4-35.0); Mean Corpuscular HGB Conc 34 % (32-34); Mean Corpuscular Volume 87 fl (84-94); Monocytes # (Auto) 0.6 K/mm3 (0.0-0.8); Monocytes % (Auto) 8.6 % (0.0-7.3); Platelet Count 328 K/mm3 (140-440); Red Blood Count 5.12 M/mm3 (3.65-5.03); Red Cell Distribution Width 18.2 % (13.2-15.2)
[2020-04-28 10:53] LABS: INR 1.09 (0.87-1.13)
[2020-04-28 10:54] LABS: BUN/Creatinine Ratio 32; Blood Urea Nitrogen 32 mg/dL (9-20); Calcium 9.4 mg/dL (8.4-10.2); Hemolysis Index 11; Partial Thromboplastin Time 26.5 Sec. (24.2-36.6)
[2020-04-28] MEDS ORDERED: SODIUM CHLORIDE 0.9% 500 ML 500 ML IV SCH (11:00)
[2020-04-28] MEDS ORDERED: ASPIRIN EC 325 MG TAB PO ONE (11:00)
[2020-04-28] MEDS ORDERED: HEPARIN/NS 5000 UNIT/500ML 1,000 ML IR ONE (11:30)
[2020-04-28] MEDS: MIDAZOLAM 2 MG/2 ML INJ ONE ×2 (12:03→12:30)
[2020-04-28] MEDS: LIDOCAINE (2%) 20 MG/1 ML VIAL 20 ML MDV INFILTRATI ONE ×2 (12:03→12:31)
[2020-04-28] MEDS: fentaNYL 100 MCG/2 ML INJ ONE ×2 (12:03→12:30)
[2020-04-28] MEDS: HEPARIN 10,000 UNITS/10 ML VIAL ONE ×2 (12:04→12:32)
[2020-04-28] MEDS: VERAPAMIL 5 MG/2 ML INJ ONE ×2 (12:06→12:32)
[2020-04-28] MEDS: NITROGLYCERIN SYRINGE 3 ML ONE ×2 (12:07→12:32)
--- NOTE | 2020-04-28 13:03 | Cardiac Catherization Report ---
CARDIAC CATHETERIZATION REPORT REASON FOR PROCEDURE: Dilated cardiomyopathy, abnormal thallium stress test. PROCEDURES: 1. Left heart catheterization. 2. Selective left and right coronary angiography. 3. Left ventricular angiography. 4. Sedation time, start 12:30, end 12:45. I was present for the entire procedure and supervised and monitored moderate sedation protocol. DESCRIPTION OF PROCEDURE: The patient was prepped and draped in a sterile fashion after informed consent. The right radial cath site was prepped and draped after a negative Santosh's test. The right radial artery was entered using Seldinger technique followed by placement of a 6-[place] hydrophilic sheath. Routine radial cocktail was administered via the sheath. Selective left and right coronary angiography was performed using #3.5 left Girish, and a #4 right Girish. Pigtail catheter was used for left ventricular angiography. The catheters were then removed, sheath removed, and hemostasis achieved using a TR band. The patient was returned to the postprocedure unit in stable condition. There were no complications. FINDINGS: HEMODYNAMICS: Left ventricular end-diastolic pressure was 27, following coronary angiography. Ascending aortic pressure was 160/94. There was no significant pressure gradient on pullback across the aortic valve. CORONARY ANGIOGRAPHY: The left main coronary artery was angiographically normal. Left anterior descending artery and its diagonal branches were angiographically normal. A large ramus intermedius artery contained mild luminal irregularities in its proximal segment. The circumflex artery and its obtuse marginal branches were angiographically normal. The right coronary artery was dominant and similarly angiographically normal. Left ventricle was severely dilated, there was diffuse hypokinesis, left ventricular ejection fraction less than 15-20%. CONCLUSION: 1. No significant coronary artery disease, essentially angiographically near normal coronary arteries. 2. Dilated, nonischemic cardiomyopathy, severe left ventricular ejection fraction less than 15-20%. RECOMMENDATION: Medical therapy and risk factor modification. JOB# [id number] CA/NTS
--- NOTE | 2020-04-28 13:09 | Discharge Summary ---
Short Stay Discharge Plan Activity: advance as tolerated Weight Bearing Status: Partial Weight Bearing Diet: low fat, low cholesterol, low salt Wound: keep clean and dry Special Instructions: smoking cessation, no heavy lifting (3 days) Follow up with: PRIMARY CAREMD [Primary Care Provider] - 7 Days JARETH PELAYO MD [Staff Physician] - 7 Days
[2020-04-28] MEDS ORDERED: HYDROcodone/ACETAMINOPHEN 5-325 MG TAB PO PRN (13:30)
[2020-04-28] MEDS ORDERED: SODIUM CHLORIDE 0.9% 1000 ML 1,000 ML IV SCH (13:30)
[2020-04-28] MEDS ORDERED: traMADol 50 MG TAB PO PRN (13:30)
[2020-04-28 16:03] VITALS: BP 152/100
== END 2020-04-28 16:31 | disposition home or self-care (01) ==
LOC: CATHLABREC 09:41
PROVIDERS: ATTEND Internal Medicine Cardiovascular Disease
DX: I42.0 Dilated cardiomyopathy (principal); R93.49 Abnormal radiologic findings on diagnostic imaging of other urinary organs; I11.0 Hypertensive heart disease with heart failure; I50.20 Unspecified systolic (congestive) heart failure; G62.9 Polyneuropathy, unspecified; F17.210 Nicotine dependence, cigarettes, uncomplicated; M19.90 Unspecified osteoarthritis, unspecified site; Z98.890 Other specified postprocedural states; Z87.01 Personal history of pneumonia (recurrent); Z79.82 Long term (current) use of aspirin; Z79.899 Other long term (current) drug therapy
CPT/HCPCS: 36415; 80048; 85025; 85610; 85730; 93005; 93458; 99156; C1894; J1644; J2250; J3010; J7040; Q9967

== ENCOUNTER 2020-08-10 19:39 | Inpatient (IN) | payer OTHER ==
[2020-08-10 22:12] LABS: Albumin 3.5 g/dL (3.9-5); BUN/Creatinine Ratio 23; Blood Urea Nitrogen 54 mg/dL (9-20); Calcium 8.9 mg/dL (8.4-10.2); Hemolysis Index 66
[2020-08-10 22:12] LABS: Bacteria,Urine 1+ /HPF (Negative); Bilirubin,Urine NEG (Negative); Blood,Urine SM (Negative); Color,Urine Yellow (Yellow); Hyaline Casts,Urine 1 /LPF; Mucus,Urine FEW /HPF; RBC,Urine < 1.0 /HPF (0.0-6.0); Urobilinogen,Urine < 2.0 mg/dL (<2.0)
[2020-08-10 22:15] LABS: Hematocrit 27.1 % (35.5-45.6); Hemoglobin 11.4 gm/dl (11.8-15.2); Mean Corpuscular Volume 90 fl (84-94); Platelet Count 233 K/mm3 (140-440); Red Blood Count 3.02 M/mm3 (3.65-5.03); Red Cell Distribution Width 15.8 % (13.2-15.2)
[2020-08-10 22:18] LABS: Mean Corpuscular HGB Conc 42 % (32-34)
[2020-08-10 22:39] LABS: Alanine Aminotransferase < 5 units/L (7-56)
[2020-08-10 22:52] LABS: Anisocytosis Few; Total Cells Counted 100
[2020-08-10] MEDS ORDERED: SODIUM CHLORIDE 0.9% 1000 ML 1,000 ML IV ONE ×2 (23:23→23:25)
[2020-08-10] MEDS ORDERED: MORPHINE 4 MG/1 ML INJ IV ONE (23:25)
[2020-08-10] MEDS ORDERED: ONDANSETRON 4 MG/2 ML INJ IV ONE (23:25)
--- NOTE | 2020-08-11 00:43 | Emergency Department Report ---
<KARLO SÁNCHEZ - Last Filed: 08/11/20 00:38> ED General Adult HPI - General Chief complaint: Abdominal Pain Stated complaint: STOMACH PAIN Time Seen by Provider: 08/10/20 23:26 Source: patient Mode of arrival: Ambulatory Limitations: No Limitations - History of Present Illness Initial comments: 54-year-old -[place] male patient presents with complaints of abdominal pain, nausea, and vomiting x2 days. He denies any hematemesis/coffee-ground emesis, melena/hematochezia, constipation, or diarrhea. He rates his current pain is 8/10 in severity. Past medical history includes CHF. Lipase noted to be significantly elevated (greater than 2000); patient denies any history of pancreatitis and states he drinks 2-3 beers a day regularly. No fever/chills/sweats per patient or urinary symptoms. -: Sudden Consistency: constant - Related Data Home Medications Medication Instructions Recorded Confirmed Last Taken Aspirin EC [Halfprin EC] 81 mg PO DAILY 04/28/20 04/28/20 04/27/20 81 mg Furosemide [Lasix TAB] 40 mg PO DAILY 04/28/20 04/28/20 04/27/20 40 mg Spironolactone [Aldactone] 25 mg PO DAILY 04/28/20 04/28/20 04/27/20 25 mg Valsartan [Diovan] 160 mg PO BID 04/28/20 04/28/20 04/27/20 160 mg carvediloL [Coreg] 6.25 mg PO BID 04/28/20 04/28/20 04/27/20 6.25mg Allergies Allergy/AdvReac Type Severity Reaction Status Date / Time No Known Allergies Allergy Verified 03/03/15 22:21 ED Review of Systems Constitutional: denies: chills, diaphoresis, fever, malaise Respiratory: denies: cough, shortness of breath Cardiovascular: denies: chest pain Endocrine: denies: excessive sweating Gastrointestinal: abdominal pain, nausea, vomiting. denies: constipation, hematemesis, melena, hematochezia Genitourinary: denies: urgency, dysuria, frequency, hematuria Musculoskeletal: denies: back pain Skin: denies: change in color Neurological: denies: abnormal gait Hematological/Lymphatic: denies: swollen glands ED Past Medical Hx - Past Medical History Previous Medical History?: Yes Hx Hypertension: Yes Hx Congestive Heart Failure: Yes Hx Arthritis: Yes Additional medical history: Gout, arthritis - Surgical History Past Surgical History?: Yes Hx Coronary Stent: Yes - Social History Smoking Status: Never Smoker Substance Use Type: None - Medications Home Medications: Home Medications Medication Instructions Recorded Confirmed Last Taken Type Aspirin EC [Halfprin EC] 81 mg PO DAILY 04/28/20 04/28/20 04/27/20 History 81 mg Furosemide [Lasix TAB] 40 mg PO DAILY 04/28/20 04/28/20 04/27/20 History 40 mg Spironolactone [Aldactone] 25 mg PO DAILY 04/28/20 04/28/20 04/27/20 History 25 mg Valsartan [Diovan] 160 mg PO BID 04/28/20 04/28/20 04/27/20 History 160 mg carvediloL [Coreg] 6.25 mg PO BID 04/28/20 04/28/20 04/27/20 History 6.25mg ED Physical Exam - General Limitations: No Limitations General appearance: alert, in no apparent distress - Head Head exam: Present: atraumatic, normocephalic - Eye Eye exam: Present: normal appearance. Absent: scleral icterus - Neck Neck exam: Present: normal inspection - Respiratory Respiratory exam: Present: normal lung sounds bilaterally. Absent: respiratory distress - Cardiovascular Cardiovascular Exam: Present: regular rate, normal rhythm. Absent: systolic murmur, diastolic murmur, rubs, gallop - GI/Abdominal GI/Abdominal exam: Present: soft, distended, tenderness (Worse in periumbilical area), normal bowel sounds. Absent: guarding, rebound, rigid - Back Exam Back exam: Present: full ROM. Absent: tenderness, CVA tenderness (L) - Neurological Exam Neurological exam: Present: alert, oriented X3, normal gait - Psychiatric Psychiatric exam: Present: normal affect, normal mood - Skin Skin exam: Present: warm, dry, intact, normal color. Absent: rash ED Medical Decision Making - Lab Data Result diagrams: 08/10/20 21:32 08/10/20 21:32 - Medical Decision Making 54-year-old -[place] male patient presents with complaints of abdominal pain, nausea, and vomiting x2 days. He denies any hematemesis/coffee-ground emesis, melena/hematochezia, constipation, or diarrhea. He rates his current pain is 8/10 in severity. Past medical history includes CHF. Lipase noted to be significantly elevated (greater than 2000); patient denies any history of pancreatitis and states he drinks 2-3 beers a day regularly. No fever/chills/sweats per patient or urinary symptoms. ED Disposition Clinical Impression: Acute pancreatitis, Acute abdominal pain Disposition: OP ADMIT IP TO THIS HOSP Condition: Stable Referrals: PRIMARY CARE, [Primary Care Provider] - 3-5 Days <DYAN SAVAGE - Last Filed: 08/11/20 02:51> ED Review of Systems ROS: Stated complaint: STOMACH PAIN Other details as noted in HPI ED Course Vital Signs 08/10/20 21:20 Temperature 98.1 F Pulse Rate 89 Respiratory 16 Rate Blood Pressure 106/66 O2 Sat by Pulse 99 Oximetry ED Medical Decision Making - Lab Data Result diagrams: 08/10/20 21:32 08/10/20 21:32 - Medical Decision Making 54-year-old -[place] male patient presents with complaints of abdominal pain, nausea, and vomiting x2 days. He denies any hematemesis/coffee-ground emesis, melena/hematochezia, constipation, or diarrhea. He rates his current pain is 8/10 in severity. Past medical history includes CHF. Lipase noted to be significantly elevated (greater than 2000); patient denies any history of pancreatitis and states he drinks 2-3 beers a day regularly. No fever/chills/sweats per patient or urinary symptoms. CT abdomen pelvis showed acute pancreatitis with no complication. I discussed the patient with Vandana, nurse practitioner with . She agreed to admit the patient to medical service for further management. Critical care attestation.: If time is entered above; I have spent that time in minutes in the direct care of this critically ill patient, excluding procedure time. ED Disposition Is pt being admited?: Yes
--- NOTE | 2020-08-11 02:02 | Cat Scan Report ---
CT ABDOMEN AND PELVIS WITHOUT IV CONTRAST INDICATION: Patient complains of acute abdominal pain, elevated Lipase. COMPARISON: None available. TECHNIQUE: All CT scans at this facility use dose modulation, automated exposure control, iterative reconstructi on or weight based dosing, when appropriate, to reduce radiation dose to as low as reasonably achieva ble. FINDINGS: Lung Bases: No significant abnormality. Skeletal System: No acute abnormality. ABDOMEN: Liver: No significant abnormality. Gallbladder: No significant abnormality. Bile Ducts: No significant abnormality. Pancreas: The head and uncinate are mildly edematous and there is stranding around the pancreatic hea d, neck, and uncinate. No duct dilatation. No peripancreatic fluid collections. There are a few shott y peripancreatic nodes. Spleen: No significant abnormality. Adrenals: No significant abnormality. Right Kidney: Hypodensity in the medial cortex measuring 2.1 cm is likely a cyst. Left Kidney: There is a tiny exophytic cyst lateral cortex. Upper GI tract: No significant abnormality. Lymph Nodes: No significant adenopathy. Aorta: No significant abnormality. Additional Findings: No significant abnormality. PELVIS: Colon: No acute abnormality. Urinary Bladder and Distal Ureters: No significant abnormality. Appendix: No significant abnormality. Lymph Nodes: No significant adenopathy. Additional Findings: None. IMPRESSION: 1. Acute pancreatitis involving the head, neck, and uncinate. No complications are identified given noncontrast technique. 2. Incidental findings, as above. Signer Name: Dae Snyder MD Signed: 08/11/2020 1:57 AM Workstation Name: [id number]
[2020-08-11] MEDS ORDERED: ONDANSETRON 4 MG/2 ML INJ IV PRN (04:02)
[2020-08-11] MEDS ORDERED: ALBUTEROL 2.5 MG/3 ML NEBU IH PRN (04:02)
[2020-08-11] MEDS ORDERED: NALOXONE 0.4 MG/1 ML INJ IV PRN (04:02)
[2020-08-11] MEDS ORDERED: HYDROmorphone 1 MG/1 ML INJ IV PRN (04:02)
[2020-08-11] MEDS ORDERED: ACETAMINOPHEN 650 MG RECT SUPP PR PRN (04:02)
[2020-08-11] MEDS ORDERED: NICOTINE 14 MG/24 HR PATCH TD PRN (04:06)
[2020-08-11] MEDS ORDERED: LORazepam 2 MG/ML VIAL IV PRN (04:08)
--- NOTE | 2020-08-11 04:21 | History and Physical Report ---
History of Present Illness Date of examination: 08/11/20 Date of admission: 08/11/20 02:51 Chief complaint: abd pain, n/V History of present illness: 54-year-old -[place] male who is an ongoing smoker recently diagnosed with CHF (01/2020), with history of hypertension, arthritis, gout, questionable history of COPD who presents [facility] with complaints of abdominal pain, nausea and vomiting x2 days. Patient states that he has been experiencing constant 9/ 10 sharp/aching generalized abdominal pain which is worse in the periumbilical area x2 days. Endorses abdominal distention, nausea, vomiting, drinking 4 to 6 cans of beer daily. Denies fever, chills, headache, diarrhea, hematemesis, coffee-ground emesis, hematuria, hematochezia, melena, hemoptysis, cough, or history of pancreatitis Past History Past Medical History: arthritis, heart failure (LVEF 20% seen on echo (02/22/2020)), hypertension, other (Gout, questionable history of COPD,) Past Surgical History: No surgical history Social history: single (Lives with girlfriend), smoking (Current everyday smoker), alcohol abuse (Drinks 4 to 6 cans of beer daily), full code. denies: prescription drug abuse, IV drug use Family history: hypertension Medications and Allergies Allergies Allergy/AdvReac Type Severity Reaction Status Date / Time No Known Allergies Allergy Verified 03/03/15 22:21 Home Medications Medication Instructions Recorded Confirmed Last Taken Type Aspirin EC [Halfprin EC] 81 mg PO DAILY 04/28/20 04/28/20 04/27/20 History 81 mg Furosemide [Lasix TAB] 40 mg PO DAILY 04/28/20 04/28/20 04/27/20 History 40 mg Spironolactone [Aldactone] 25 mg PO DAILY 04/28/20 04/28/20 04/27/20 History 25 mg Valsartan [Diovan] 160 mg PO BID 04/28/20 04/28/20 04/27/20 History 160 mg carvediloL [Coreg] 6.25 mg PO BID 04/28/20 04/28/20 04/27/20 History 6.25mg Active Meds: Active Medications Acetaminophen (Acetaminophen 650 Mg Rect Supp) 650 mg NH Q4H PRN PRN Reason: Pain MILD(1-3)/Fever >100.5/FRANCO Albuterol (Albuterol 2.5 Mg/3 Ml Nebu) 2.5 mg IH Q4HRT PRN PRN Reason: Shortness Of Breath Famotidine (Famotidine 20 Mg/2 Ml Inj) 10 mg IV BID JAQUELINE Furosemide (Furosemide 20 Mg/2 Ml Inj) 20 mg IV QDAY JAQUELINE Hydromorphone HCl (Hydromorphone 1 Mg/1 Ml Inj) 0.5 mg IV Q3H PRN PRN Reason: Pain , Severe (7-10) Sodium Chloride (Nacl 0.45% 1000 Ml) 1,000 mls @ 50 mls/hr IV DIRECT JAQUELINE Ceftriaxone Sodium (Rocephin/Ns 1 Gm/50 Ml) 1 gm in 50 mls @ 100 mls/hr IV Q24H JAQUELINE; Protocol Metronidazole (Flagyl 500 Mg/100 Ml) 500 mg in 100 mls @ 100 mls/hr IV Q8H JAQUELINE; Protocol Lorazepam (Lorazepam 2 Mg/Ml Vial) 2 mg IV Q1H PRN PRN Reason: CIWA-Ar 8-15 Metoprolol Tartrate (Metoprolol Tartrate 5 Mg/5 Ml Inj) 2.5 mg IV Q8HR JAQUELINE Morphine Sulfate (Morphine 2 Mg/1 Ml Inj) 2 mg IV Q4H PRN PRN Reason: Pain, Moderate (4-6) Naloxone HCl (Naloxone 0.4 Mg/1 Ml Inj) 0.1 mg IV Q2MIN PRN PRN Reason: Res Rate </= 8 or 02 SAT < 92% Nicotine (Nicotine 14 Mg/24 Hr Patch) 14 mg TD QDAY PRN PRN Reason: smoking cessation Stop: 08/18/20 04:05 Ondansetron HCl (Ondansetron 4 Mg/2 Ml Inj) 4 mg IV Q6H PRN PRN Reason: Nausea And Vomiting Sodium Chloride (Sodium Chloride 0.9% 10 Ml Flush Syringe) 10 ml IV BID JAQUELINE Sodium Chloride (Sodium Chloride 0.9% 10 Ml Flush Syringe) 10 ml IV PRN PRN PRN Reason: LINE FLUSH Review of Systems All systems: negative (Except as noted in HPI) Exam - Physical Exam Narrative exam: Physical exam General appearance: Present: No acute distress, alert and oriented 3, middle- aged adult, male - EENT Eyes: Present: PERRL, EOM intact ENT: hearing intact, normal dentition - Neck Neck: Present: supple, normal ROM - Respiratory Respiratory effort: Non-labored Respiratory: Clear throughout - Cardiovascular Heart rate: 78 (bpm) Rhythm: Sinus Heart Sounds: Present: S1 & S2. Absent: rub, click - Extremities Extremities: no ischemia, pulses intact, - Peripheral Assessment Peripheral Pulses: within normal limits - Abdominal General gastrointestinal: Distended, periumbilical tenderness, normal bowel sounds - Integumentary Integumentary: Present: warm, dry - Musculoskeletal Musculoskeletal: Able to move all extremities -Neurological Neurological: CN II-XII intact - Psychiatric Psychiatric: Appropriate for situation ,cooperative - Constitutional Vitals: Temp Pulse Resp BP Pulse Ox 98.7 F 83 17 124/73 98 08/11/20 03:24 08/11/20 03:24 08/11/20 03:24 08/11/20 03:24 08/11/20 03:24 HEART Score - HEART Score Troponin: WBC 19.3 K/mm3 (4.5-11.0) H 08/10/20 21:32 RBC 3.02 M/mm3 (3.65-5.03) L 08/10/20 21:32 Hgb 11.4 gm/dl (11.8-15.2) L 08/10/20 21:32 Hct 27.1 % (35.5-45.6) L 08/10/20 21:32 MCV 90 fl (84-94) 08/10/20 21:32 MCH 38 pg (28-32) H 08/10/20 21:32 MCHC 42 % (32-34) H* 08/10/20 21:32 RDW 15.8 % (13.2-15.2) H 08/10/20 21:32 Plt Count 233 K/mm3 (140-440) 08/10/20 21:32 [place]arton % (Auto) Assembly Machine Set Up Mechanic 08/10/20 21:32 Add Manual Diff Complete 08/10/20 21:32 Total Counted 100 08/10/20 21:32 Seg Neuts % (Manual) 86.0 % (40.0-70.0) H 08/10/20 21:32 Lymphocytes % (Manual) 9.0 % (13.4-35.0) L 08/10/20 21:32 Monocytes % (Manual) 3.0 % (0.0-7.3) 08/10/20 21:32 Eosinophils % (Manual) 2.0 % (0.0-4.3) 08/10/20 21:32 Nucleated RBC % Not Reportable 08/10/20 21:32 Seg Neutrophils # Man 16.6 K/mm3 (1.8-7.7) H 08/10/20 21:32 Band Neutrophils # 0.0 K/mm3 08/10/20 21:32 Lymphocytes # (Manual) 1.7 K/mm3 (1.2-5.4) 08/10/20 21:32 Abs React Lymphs (Man) 0.0 K/mm3 08/10/20 21:32 Monocytes # (Manual) 0.6 K/mm3 (0.0-0.8) 08/10/20 21:32 Eosinophils # (Manual) 0.4 K/mm3 (0.0-0.4) 08/10/20 21:32 Basophils # (Manual) 0.0 K/mm3 (0.0-0.1) 08/10/20 21:32 Metamyelocytes # 0.0 K/mm3 08/10/20 21:32 Myelocytes # 0.0 K/mm3 08/10/20 21:32 Promyelocytes # 0.0 K/mm3 08/10/20 21:32 Blast Cells # 0.0 K/mm3 08/10/20 21:32 WBC Morphology Not Reportable 08/10/20 21:32 Hypersegmented Neuts Not Reportable 08/10/20 21:32 Hyposegmented Neuts Not Reportable 08/10/20 21:32 Hypogranular Neuts Not Reportable 08/10/20 21:32 Smudge Cells Not Reportable 08/10/20 21:32 Toxic Granulation Not Reportable 08/10/20 21:32 Toxic Vacuolation Not Reportable 08/10/20 21:32 Dohle Bodies Not Reportable 08/10/20 21:32 Pelger-Huet Anomaly Not Reportable 08/10/20 21:32 Alexander Rods Not Reportable 08/10/20 21:32 Platelet Estimate Not Reportable 08/10/20 21:32 Clumped Platelets Not Reportable 08/10/20 21:32 Plt Clumps, EDTA Not Reportable 08/10/20 21:32 Large Platelets Not Reportable 08/10/20 21:32 Giant Platelets Not Reportable 08/10/20 21:32 Platelet Satelliting Not Reportable 08/10/20 21:32 Plt Morphology Comment Not Reportable 08/10/20 21:32 RBC Morphology Not Reportable 08/10/20 21:32 Dimorphic RBCs Not Reportable 08/10/20 21:32 Polychromasia Not Reportable 08/10/20 21:32 Hypochromasia Not Reportable 08/10/20 21:32 Poikilocytosis Not Reportable 08/10/20 21:32 Anisocytosis Few 08/10/20 21:32 Microcytosis Rare 08/10/20 21:32 Macrocytosis Not Reportable 08/10/20 21:32 Spherocytes Not Reportable 08/10/20 21:32 Pappenheimer Bodies Not Reportable 08/10/20 21:32 Sickle Cells Not Reportable 08/10/20 21:32 Target Cells Not Reportable 08/10/20 21:32 Tear Drop Cells Not Reportable 08/10/20 21:32 Ovalocytes Not Reportable 08/10/20 21:32 Helmet Cells Not Reportable 08/10/20 21:32 [place] Bodies Not Reportable 08/10/20 21:32 [place] Rings Not Reportable 08/10/20 21:32 Gabriel Cells Not Reportable 08/10/20 21:32 Bite Cells Not Reportable 08/10/20 21:32 Crenated Cell Not Reportable 08/10/20 21:32 Elliptocytes Not Reportable 08/10/20 21:32 Acanthocytes (Spur) Not Reportable 08/10/20 21:32 Rouleaux Not Reportable 08/10/20 21:32 Hemoglobin C Crystals Not Reportable 08/10/20 21:32 Schistocytes Not Reportable 08/10/20 21:32 Malaria parasites Not Reportable 08/10/20 21:32 Roger Bodies Not Reportable 08/10/20 21:32 Hem Pathologist Commnt No 08/10/20 21:32 Sodium 129 mmol/L (137-145) L 08/10/20 21:32 Potassium 5.5 mmol/L (3.6-5.0) H 08/10/20 21:32 Chloride 99.9 mmol/L (98-107) 08/10/20 21:32 Carbon Dioxide 13 mmol/L (22-30) L 08/10/20 21:32 Anion Gap 22 mmol/L 08/10/20 21:32 BUN 54 mg/dL (9-20) H 08/10/20 21:32 Creatinine 2.3 mg/dL (0.8-1.3) H 08/10/20 21:32 Estimated GFR 36 ml/min 08/10/20 21:32 BUN/Creatinine Ratio 23 % 08/10/20 21:32 Glucose 116 mg/dL (75-100) H 08/10/20 21:32 Calcium 8.9 mg/dL (8.4-10.2) 08/10/20 21:32 Total Bilirubin 0.50 mg/dL (0.1-1.2) 08/10/20 21:32 AST < 5 units/L (5-40) L 08/10/20 21:32 ALT < 5 units/L (7-56) L 08/10/20 21:32 Alkaline Phosphatase 275 units/L (35-129) H 08/10/20 21:32 Total Protein 7.8 g/dL (6.3-8.2) 08/10/20 21:32 Albumin 3.5 g/dL (3.9-5) L 08/10/20 21:32 Albumin/Globulin Ratio 0.8 % 08/10/20 21:32 Lipase 2054 units/L (13-60) H 08/10/20 21:32 Urine Color Yellow (Yellow) 08/10/20 Unknown Urine Turbidity Clear (Clear) 08/10/20 Unknown Urine pH 5.0 (5.0-7.0) 08/10/20 Unknown Ur Specific [place] 1.013 (1.003-1.030) 08/10/20 Unknown Urine Protein 30 mg/dl mg/dL (Negative) 08/10/20 Unknown Urine Glucose (UA) Neg mg/dL (Negative) 08/10/20 Unknown Urine Ketones Neg mg/dL (Negative) 08/10/20 Unknown Urine Blood Sm (Negative) 08/10/20 Unknown Urine Nitrite Neg (Negative) 08/10/20 Unknown Urine Bilirubin Neg (Negative) 08/10/20 Unknown Urine Urobilinogen < 2.0 mg/dL (<2.0) 08/10/20 Unknown Ur Leukocyte Esterase Neg (Negative) 08/10/20 Unknown Urine WBC (Auto) 2.0 /HPF (0.0-6.0) 08/10/20 Unknown Urine RBC (Auto) < 1.0 /HPF (0.0-6.0) 08/10/20 Unknown Urine Bacteria (Auto) 1+ /HPF (Negative) 08/10/20 Unknown Hyaline Casts 1 /LPF 08/10/20 Unknown Urine Mucus Few /HPF 08/10/20 Unknown Results - Labs CBC & Chem 7: 08/10/20 21:32 08/10/20 21:32 Labs: Laboratory Last Values WBC 19.3 K/mm3 (4.5-11.0) H 08/10/20 21:32 RBC 3.02 M/mm3 (3.65-5.03) L 08/10/20 21:32 Hgb 11.4 gm/dl (11.8-15.2) L 08/10/20 21:32 Hct 27.1 % (35.5-45.6) L 08/10/20 21:32 MCV 90 fl (84-94) 08/10/20 21:32 MCH 38 pg (28-32) H 08/10/20 21:32 MCHC 42 % (32-34) H* 08/10/20 21:32 RDW 15.8 % (13.2-15.2) H 08/10/20 21:32 Plt Count 233 K/mm3 (140-440) 08/10/20 21:32 [place]arton % (Auto) Assembly Machine Set Up Mechanic 08/10/20 21:32 Add Manual Diff Complete 08/10/20 21:32 Total Counted 100 08/10/20 21:32 Seg Neuts % (Manual) 86.0 % (40.0-70.0) H 08/10/20 21:32 Lymphocytes % (Manual) 9.0 % (13.4-35.0) L 08/10/20 21:32 Monocytes % (Manual) 3.0 % (0.0-7.3) 08/10/20 21:32 Eosinophils % (Manual) 2.0 % (0.0-4.3) 08/10/20 21:32 Nucleated RBC % Not Reportable 08/10/20 21:32 Seg Neutrophils # Man 16.6 K/mm3 (1.8-7.7) H 08/10/20 21:32 Band Neutrophils # 0.0 K/mm3 08/10/20 21:32 Lymphocytes # (Manual) 1.7 K/mm3 (1.2-5.4) 08/10/20 21:32 Abs React Lymphs (Man) 0.0 K/mm3 08/10/20 21:32 Monocytes # (Manual) 0.6 K/mm3 (0.0-0.8) 08/10/20 21:32 Eosinophils # (Manual) 0.4 K/mm3 (0.0-0.4) 08/10/20 21:32 Basophils # (Manual) 0.0 K/mm3 (0.0-0.1) 08/10/20 21:32 Metamyelocytes # 0.0 K/mm3 08/10/20 21:32 Myelocytes # 0.0 K/mm3 08/10/20 21:32 Promyelocytes # 0.0 K/mm3 08/10/20 21:32 Blast Cells # 0.0 K/mm3 08/10/20 21:32 WBC Morphology Not Reportable 08/10/20 21:32 Hypersegmented Neuts Not Reportable 08/10/20 21:32 Hyposegmented Neuts Not Reportable 08/10/20 21:32 Hypogranular Neuts Not Reportable 08/10/20 21:32 Smudge Cells Not Reportable 08/10/20 21:32 Toxic Granulation Not Reportable 08/10/20 21:32 Toxic Vacuolation Not Reportable 08/10/20 21:32 Dohle Bodies Not Reportable 08/10/20 21:32 Pelger-Huet Anomaly Not Reportable 08/10/20 21:32 Alexander Rods Not Reportable 08/10/20 21:32 Platelet Estimate Not Reportable 08/10/20 21:32 Clumped Platelets Not Reportable 08/10/20 21:32 Plt Clumps, EDTA Not Reportable 08/10/20 21:32 Large Platelets Not Reportable 08/10/20 21:32 Giant Platelets Not Reportable 08/10/20 21:32 Platelet Satelliting Not Reportable 08/10/20 21:32 Plt Morphology Comment Not Reportable 08/10/20 21:32 RBC Morphology Not Reportable 08/10/20 21:32 Dimorphic RBCs Not Reportable 08/10/20 21:32 Polychromasia Not Reportable 08/10/20 21:32 Hypochromasia Not Reportable 08/10/20 21:32 Poikilocytosis Not Reportable 08/10/20 21:32 Anisocytosis Few 08/10/20 21:32 Microcytosis Rare 08/10/20 21:32 Macrocytosis Not Reportable 08/10/20 21:32 Spherocytes Not Reportable 08/10/20 21:32 Pappenheimer Bodies Not Reportable 08/10/20 21:32 Sickle Cells Not Reportable 08/10/20 21:32 Target Cells Not Reportable 08/10/20 21:32 Tear Drop Cells Not Reportable 08/10/20 21:32 Ovalocytes Not Reportable 08/10/20 21:32 Helmet Cells Not Reportable 08/10/20 21:32 [place] Bodies Not Reportable 08/10/20 21:32 [place] Rings Not Reportable 08/10/20 21:32 Gabriel Cells Not Reportable 08/10/20 21:32 Bite Cells Not Reportable 08/10/20 21:32 Crenated Cell Not Reportable 08/10/20 21:32 Elliptocytes Not Reportable 08/10/20 21:32 Acanthocytes (Spur) Not Reportable 08/10/20 21:32 Rouleaux Not Reportable 08/10/20 21:32 Hemoglobin C Crystals Not Reportable 08/10/20 21:32 Schistocytes Not Reportable 08/10/20 21:32 Malaria parasites Not Reportable 08/10/20 21:32 Roger Bodies Not Reportable 08/10/20 21:32 Hem Pathologist Commnt No 08/10/20 21:32 Sodium 129 mmol/L (137-145) L 08/10/20 21:32 Potassium 5.5 mmol/L (3.6-5.0) H 08/10/20 21:32 Chloride 99.9 mmol/L (98-107) 08/10/20 21:32 Carbon Dioxide 13 mmol/L (22-30) L 08/10/20 21:32 Anion Gap 22 mmol/L 08/10/20 21:32 BUN 54 mg/dL (9-20) H 08/10/20 21:32 Creatinine 2.3 mg/dL (0.8-1.3) H 08/10/20 21:32 Estimated GFR 36 ml/min 08/10/20 21:32 BUN/Creatinine Ratio 23 % 08/10/20 21:32 Glucose 116 mg/dL (75-100) H 08/10/20 21:32 Calcium 8.9 mg/dL (8.4-10.2) 08/10/20 21:32 Total Bilirubin 0.50 mg/dL (0.1-1.2) 08/10/20 21:32 AST < 5 units/L (5-40) L 08/10/20 21:32 ALT < 5 units/L (7-56) L 08/10/20 21:32 Alkaline Phosphatase 275 units/L (35-129) H 08/10/20 21:32 Total Protein 7.8 g/dL (6.3-8.2) 08/10/20 21: Albumin 3.5 g/dL (3.9-5) L 08/10/20 21:32 Albumin/Globulin Ratio 0.8 % 08/10/20 21:32 Lipase 2054 units/L (13-60) H 08/10/20 21:32 Urine Color Yellow (Yellow) 08/10/20 Unknown Urine Turbidity Clear (Clear) 08/10/20 Unknown Urine pH 5.0 (5.0-7.0) 08/10/20 Unknown Ur Specific [place] 1.013 (1.003-1.030) 08/10/20 Unknown Urine Protein 30 mg/dl mg/dL (Negative) 08/10/20 Unknown Urine Glucose (UA) Neg mg/dL (Negative) 08/10/20 Unknown Urine Ketones Neg mg/dL (Negative) 08/10/20 Unknown Urine Blood Sm (Negative) 08/10/20 Unknown Urine Nitrite Neg (Negative) 08/10/20 Unknown Urine Bilirubin Neg (Negative) 08/10/20 Unknown Urine Urobilinogen < 2.0 mg/dL (<2.0) 08/10/20 Unknown Ur Leukocyte Esterase Neg (Negative) 08/10/20 Unknown Urine WBC (Auto) 2.0 /HPF (0.0-6.0) 08/10/20 Unknown Urine RBC (Auto) < 1.0 /HPF (0.0-6.0) 08/10/20 Unknown Urine Bacteria (Auto) 1+ /HPF (Negative) 08/10/20 Unknown Hyaline Casts 1 /LPF 08/10/20 Unknown Urine Mucus Few /HPF 08/10/20 Unknown - Diagnostic Impressions Diagnostic Impressions: CT Abd/Pelvis: ABDOMEN: Liver: No significant abnormality. Gallbladder: No significant abnormality. Bile Ducts: No significant abnormality. Pancreas: The head and uncinate are mildly edematous and there is stranding around the pancreatic head, neck, and uncinate. No duct dilatation. No peripancreatic fluid collections. There are a few shotty peripancreatic nodes. Spleen: No significant abnormality. Adrenals: No significant abnormality. Right Kidney: Hypodensity in the medial cortex measuring 2.1 cm is likely a cyst. Left Kidney: There is a tiny exophytic cyst lateral cortex. Upper GI tract: No significant abnormality. Lymph Nodes: No significant adenopathy. Aorta: No significant abnormality. Additional Findings: No significant abnormality. PELVIS: Colon: No acute abnormality. Urinary Bladder and Distal Ureters: No significant abnormality. Appendix: No significant abnormality. Lymph Nodes: No significant adenopathy. Additional Findings: None. IMPRESSION: 1. Acute pancreatitis involving the head, neck, and uncinate. No complications are identified given noncontrast technique. 2. Incidental findings, as above. Assessment and Plan Assessment and plan: Acute pancreatitis -CT abdomen pelvis shows acute pancreatitis -Lipase 2053 -N.p.o. -Gentle hydration -Pain management -Supportive care Peripancreatic nodes -Incidental finding seen on CT abdomen -Patient will require outpatient follow-up with GI Leukocytosis -Likely due to acute pancreatitis -WBC on admission 19.3 -Afebrile -Cultures pending -Start on IV ABX -Continue to monitor CBC MICHEL -Cr on admission 2.3 -Gentle hydration hydrate with IVF -Avoid nephrotoxic agents -Renal dose all meds Anemia -Hemoglobin on admission 11.4 -No s/s of active bleeding -Continue to monitor hemoglobin -Transfuse as needed CHF -Diagnosed 01/2020 -LVEF of 20% seen on echo done 02/22/20 -On continuous remote telemetry monitoring -Resume meds when appropriate -Follows [facility] (Dr. Díaz) as outpatient HTN -Monitor BP -Resume home hypertensive meds, when appropriate -IV antihypertensive meds when necessary Tobacco abuse -Current every day smoker -Counseled for cessation -Nicotine patch when necessary EtOH Abuse -Last drink 1 days ago -Monitor for withdrawals -Initiate CIWA protocol -Counseled for cessation abuse Hyponatremia -Sodium 129 -Likely due to dehydration -Receiving gentle IVF -Continue to monitor and replete as needed Advance Directives: No VTE prophylaxis?: Chemical, Mechanical Plan of care discussed with patient/family: Yes
[2020-08-11] MEDS ORDERED: SODIUM CHLORIDE 0.45% 1000 ML 1,000 ML IV SCH (05:00)
[2020-08-11] MEDS: metroNIDAZOLE/NS 500 MG/100 ML 500 MG/100 ML BAG IV SCH ×3 (05:56→20:33)
[2020-08-11] MEDS: cefTRIAXone/NS 1 GM/50 ML 1 GM/50 ML BAG IV SCH (05:56)
[2020-08-11] MEDS ORDERED: METOPROLOL TARTRATE 5 MG/5 ML INJ IV SCH (06:00)
[2020-08-11] MEDS: MORPHINE 2 MG/1 ML INJ IV PRN ×3 (08:58→21:23)
[2020-08-11] MEDS: FAMOTIDINE 20 MG/2 ML INJ IV SCH ×2 (09:00→21:25)
[2020-08-11] MEDS: HEPARIN 5,000 UNIT/1 ML VIAL SUB-Q SCH ×2 (09:03→21:25)
[2020-08-11] MEDS ORDERED: FUROSEMIDE 20 MG/2 ML INJ IV SCH (10:00)
[2020-08-11] MEDS ORDERED: VALSARTAN 160MG TAB PO SCH (13:49)
[2020-08-11] MEDS ORDERED: carvediloL 6.25 MG TAB PO SCH ×2 (13:49→13:51)
--- NOTE | 2020-08-11 14:59 | Event Note ---
Date: 08/11/20 This is the second visit following midnight Patient seen and examined This is a 54-year-old -Citizen Of [place] male who is an ongoing smoker recently diagnosed with CHF EF 20 to 25% (01/2020), with history of hypertension, arthritis, gout, questionable history of COPD who presents [facility] ED with complaints of abdominal pain, nausea and vomiting x2 days. CT abdomen pelvis was essentially unremarkable. Admission chemistry showed sodium 129, potassium 5.5 CO2 13, creatinine 2.3 lipase of 2053. We'll start her on gentle bicarbonate drip for persistent hyperkalemia metabolic acidosis MICHEL We'll hold his spironolactone IV diuretics and ACEI for hyperkalemia and MICHEL Start on clear liquid diet Consult nephrology, consult cardiology Monitor clinically with supportive care Repeat chemistry in the morning
[2020-08-11 15:16] LABS: Mean Corpuscular Volume 90 fl (84-94); Platelet Count 208 K/mm3 (140-440); Red Blood Count 2.79 M/mm3 (3.65-5.03); Red Cell Distribution Width 16.1 % (13.2-15.2)
[2020-08-11 15:29] LABS: Hematocrit 25.1 % (35.5-45.6); Hemoglobin 9.6 gm/dl (11.8-15.2)
[2020-08-11 15:30] LABS: Mean Corpuscular HGB Conc 38 % (32-34)
[2020-08-11 15:33] LABS: Calcium 8.6 mg/dL (8.4-10.2)
--- NOTE | 2020-08-11 16:55 | Consultation ---
History of Present Illness - Reason for Consult Consult date: 08/11/20 acute renal failure, hyperkalemia - History of Present Illness The patient is a 54 YO AAM with history significant for HTN, DM type 2, HFrEF (EF20 to 25%), Tobacco smoker, Arthritis, Gout and questionable history of COPD who presented to [facility] ED 08/10 with complaints of abdominal pain, nausea and vomiting x 2 days duration. Patient also admits decreased PO intake. Patient denies fever, chills, cp, sob, leg swelling, cough, dysuria, hematuria, dizziness or syncope. CT abdomen & pelvis showed pancreatitis. Admission c hemistry showed sodium 129, potassium 5.5, CO2 13, Creatinine 2.3 and Lipase of 2053. Nephrology was consulted for further evaluation. Past History Past Medical History: arthritis, heart failure (LVEF 20% seen on echo (02/22/2020)), hypertension, other (Gout, questionable history of COPD,) Past Surgical History: No surgical history Social history: single (Lives with girlfriend), smoking (Current everyday smoker), alcohol abuse (Drinks 4 to 6 cans of beer daily), full code. denies: prescription drug abuse, IV drug use Family history: hypertension Medications and Allergies Allergies Allergy/AdvReac Type Severity Reaction Status Date / Time No Known Allergies Allergy Verified 03/03/15 22:21 Home Medications Medication Instructions Recorded Confirmed Last Taken Type Aspirin EC [Halfprin EC] 81 mg PO DAILY 04/28/20 08/11/20 04/27/20 History 81 mg Furosemide [Lasix TAB] 40 mg PO DAILY 04/28/20 08/11/20 04/27/20 History 40 mg Spironolactone [Aldactone] 25 mg PO DAILY 04/28/20 08/11/20 04/27/20 History 25 mg Valsartan [Diovan] 160 mg PO BID 04/28/20 08/11/20 04/27/20 History 160 mg carvediloL [Coreg] 6.25 mg PO BID 04/28/20 08/11/20 04/27/20 History 6.25mg Active Meds: Active Medications Acetaminophen (Acetaminophen 650 Mg Rect Supp) 650 mg DE Q4H PRN PRN Reason: Pain MILD(1-3)/Fever >100.5/FRANCO Albuterol (Albuterol 2.5 Mg/3 Ml Nebu) 2.5 mg IH Q4HRT PRN PRN Reason: Shortness Of Breath Amlodipine Besylate (Amlodipine 10 Mg Tab) 10 mg PO QDAY [facility] Aspirin (Aspirin Ec 81 Mg Tab) 81 mg PO DAILY [facility] Carvedilol (Carvedilol 3.125 Mg Tab) 3.125 mg PO BID [facility] Famotidine (Famotidine 20 Mg/2 Ml Inj) 10 mg IV BID [facility] Last Admin: 08/11/20 09:00 Dose: 10 mg Documented by: Heparin Sodium (Porcine) (Heparin 5,000 Unit/1 Ml Vial) 5,000 unit SUB-Q BID [facility] Last Admin: 08/11/20 09:03 Dose: 5,000 unit Documented by: Hydromorphone HCl (Hydromorphone 1 Mg/1 Ml Inj) 0.5 mg IV Q3H PRN PRN Reason: Pain , Severe (7-10) Sodium Chloride (Nacl 0.45% 1000 Ml) 1,000 mls @ 50 mls/hr IV DIRECT [facility] Last Admin: 08/11/20 05:55 Dose: 50 mls/hr Documented by: Ceftriaxone Sodium (Rocephin/Ns 1 Gm/50 Ml) 1 gm in 50 mls @ 100 mls/hr IV Q24H [facility]; Protocol Last Admin: 08/11/20 05:56 Dose: 100 mls/hr Documented by: Metronidazole (Flagyl 500 Mg/100 Ml) 500 mg in 100 mls @ 100 mls/hr IV Q8H [facility]; Protocol Last Admin: 08/11/20 13:21 Dose: 100 mls/hr Documented by: Sodium Bicarbonate 150 meq/ (Dextrose) 1,150 mls @ 42 mls/hr IV DIRECT [facility] Last Admin: 08/11/20 16:30 Dose: 42 mls/hr Documented by: Lorazepam (Lorazepam 2 Mg/Ml Vial) 2 mg IV Q1H PRN PRN Reason: CIWA-Ar 8-15 Morphine Sulfate (Morphine 2 Mg/1 Ml Inj) 2 mg IV Q4H PRN PRN Reason: Pain, Moderate (4-6) Last Admin: 08/11/20 13:24 Dose: 2 mg Documented by: Naloxone HCl (Naloxone 0.4 Mg/1 Ml Inj) 0.1 mg IV Q2MIN PRN PRN Reason: Res Rate </= 8 or 02 SAT < 92% Nicotine (Nicotine 14 Mg/24 Hr Patch) 14 mg TD QDAY PRN PRN Reason: smoking cessation Stop: 08/18/20 04:05 Ondansetron HCl (Ondansetron 4 Mg/2 Ml Inj) 4 mg IV Q6H PRN PRN Reason: Nausea And Vomiting Sodium Chloride (Sodium Chloride 0.9% 10 Ml Flush Syringe) 10 ml IV BID [facility] Last Admin: 08/11/20 09:05 Dose: 10 ml Documented by: Sodium Chloride (Sodium Chloride 0.9% 10 Ml Flush Syringe) 10 ml IV PRN PRN PRN Reason: LINE FLUSH Review of Systems Constitutional: no weight loss, no weight gain, no fever, no chills, no anorexia, no fatigue, no weakness, no poor appetite Ears, nose, mouth and throat: no sore throat Cardiovascular: high blood pressure, no chest pain, no orthopnea, no edema, no syncope, no lightheadedness, no shortness of breath Respiratory: no cough, no hemoptysis, no shortness of breath, no dyspnea on exertion Gastrointestinal: abdominal pain, nausea, vomiting, no diarrhea, no BRBPR, no melena, no hematochezia Genitourinary Male: no dysuria, no hematuria Integumentary: no wounds, no jaundice Neurological: no paralysis, no weakness, no convulsions, no aphasia, no change in speech, no change in mentation, no confusion Exam - Vital Signs Vital signs: Vital Signs Temp Pulse Resp BP Pulse Ox 98.1 F 89 16 106/66 99 08/10/20 21:20 08/10/20 21:20 08/10/20 21:20 08/10/20 21:20 08/10/20 21:20 Results - Lab Results 08/11/20 14:48 08/11/20 14:48 Most recent lab results Calcium 8.6 mg/dL (8.4-10.2) 08/11/20 14:48 Phosphorus 3.90 mg/dL (2.5-4.5) 08/11/20 09:22 Magnesium 2.10 mg/dL (1.7-2.3) 08/11/20 09:22 Assessment and Plan 1. Acute kidney injury: Vasomotor MICHEL in the setting of volume depletiob / pancreatitis. CT abdomen was negative for hydro. Continue IV fluids. Monitor renal function. Creatinine level is improving. Avoid nephrotoxic agents. Meds dosage based on GFR. 2. FEN: Hyponatremia, continue IV fluids. Hyperkalemia, bicarbonate drip, kayexalate, monitor. Anion-gap metabolic acidosis, bicarb drip, monitor. Hold Spironolactone, diuretics and ACEI. Monitor lytes and volume status. 3. Acute pancreatitis: 2/2 Alcohol abuse. NPO, IV fluids, pain control. Monitor BP. 4. Alcohol abuse: Counseled. Monitor. 5. HFrEF: Appears compensated. Monitor. 6. HTN: Monitor BP. Subjective: Patient was seen and examined at the bedside. Objective: General appearance: well-developed, appears stated age, not in distress HEENT: ATNC Neck: trachea midline Respiratory: ctab Heart: regular, S1S2, no murmur Gastrointestinal: soft, normoactive bowel sounds, not tender Integumentary: no rash, warm and dry Ext: no edema Neurologic: AO, non-focal Ext: no edema
[2020-08-11] MEDS ORDERED: SODIUM BICARBONATE 150 MEQ in DEXTROSE 5% IN WATER 1,000 ML IV SCH (17:00)
[2020-08-11] MEDS ORDERED: SODIUM POLYSTYRENE 15 GM/60 ML ORAL LIQD PO ONE (18:04)
[2020-08-11] MEDS: carvediloL 3.125 MG TAB PO SCH (21:27)
[2020-08-12] MEDS: cefTRIAXone/NS 1 GM/50 ML 1 GM/50 ML BAG IV SCH (04:09)
[2020-08-12] MEDS: metroNIDAZOLE/NS 500 MG/100 ML 500 MG/100 ML BAG IV SCH ×2 (05:10→12:08)
[2020-08-12 05:13] LABS: Hematocrit 22.3 % (35.5-45.6); Hemoglobin 8.4 gm/dl (11.8-15.2); Mean Corpuscular Volume 89 fl (84-94); Platelet Count 194 K/mm3 (140-440); Red Cell Distribution Width 15.8 % (13.2-15.2)
[2020-08-12 05:38] LABS: Basophils % (Auto) 0.3 % (0.0-1.8); Eosinophils % (Auto) 0.5 % (0.0-4.3); Lymphocytes % (Auto) 10.8 % (13.4-35.0); Mean Corpuscular HGB Conc 35 % (32-34)
[2020-08-12 05:39] LABS: Eosinophils # (Auto) 0.1 K/mm3 (0.0-0.4); Lymphocytes # (Auto) 1.4 K/mm3 (1.2-5.4); Monocytes # (Auto) 1.1 K/mm3 (0.0-0.8)
[2020-08-12 05:54] LABS: Albumin 2.8 g/dL (3.9-5); BUN/Creatinine Ratio 20; Blood Urea Nitrogen 43 mg/dL (9-20); Calcium 9.2 mg/dL (8.4-10.2); Hemolysis Index 56
[2020-08-12 06:06] LABS: Alanine Aminotransferase < 5 units/L (7-56)
--- NOTE | 2020-08-12 09:12 | Consultation ---
History of Present Illness Consult date: 08/12/20 Consult reason: congestive heart failure History of present illness: This is a 54-year old M with a cardiac history of dilated, nonischemic cardi omyopathy by cardiac cath done 3 months ago that showed no significant coronary artery disease but decrease ejection fraction 15-20%. Co-morbidities includes chronic hypertension and continued daily ETOH abuse. He presents to this hospital with abdominal pain. Initial labs showed multiple metabolic abnormalities including elevated lipase of 2053, acute kidney injury, hyperkalemia with a potassium of 5.5, and an elevated WBC. Further workup with a CT scan of the abdomen showed findings of acute pancreatitis. A cardiac consultation has been requested for management of CHF. Patient is resting in bed and appears comfortable. Admits to compliance with his medications. He denies shortness of breath, and denies palpitations. No lower extremity edema. An ECG is sinus rhythm with non-specific T wave abnormalities. Past History Past Medical History: arthritis, heart failure (LVEF 20% seen on echo (02/22/2020)), hypertension, other (Gout, questionable history of COPD,) Past Surgical History: No surgical history Social history: single (Lives with girlfriend), smoking (Current everyday smoker), alcohol abuse (Drinks 4 to 6 cans of beer daily), full code. denies: prescription drug abuse, IV drug use Family history: hypertension Medications and Allergies Allergies Allergy/AdvReac Type Severity Reaction Status Date / Time No Known Allergies Allergy Verified 03/03/15 22:21 Home Medications Medication Instructions Recorded Confirmed Last Taken Type Aspirin EC [Halfprin EC] 81 mg PO DAILY 04/28/20 08/11/20 04/27/20 History 81 mg Furosemide [Lasix TAB] 40 mg PO DAILY 04/28/20 08/11/20 04/27/20 History 40 mg Spironolactone [Aldactone] 25 mg PO DAILY 04/28/20 08/11/20 04/27/20 History 25 mg Valsartan [Diovan] 160 mg PO BID 04/28/20 08/11/20 04/27/20 History 160 mg carvediloL [Coreg] 6.25 mg PO BID 04/28/20 08/11/20 04/27/20 History 6.25mg Active Meds: Active Medications Acetaminophen (Acetaminophen 650 Mg Rect Supp) 650 mg [place] Q4H PRN PRN Reason: Pain MILD(1-3)/Fever >100.5/FRANCO Albuterol (Albuterol 2.5 Mg/3 Ml Nebu) 2.5 mg IH Q4HRT PRN PRN Reason: Shortness Of Breath Amlodipine Besylate (Amlodipine 10 Mg Tab) 10 mg PO QDAY [facility] Aspirin (Aspirin Ec 81 Mg Tab) 81 mg PO DAILY [facility] Carvedilol (Carvedilol 3.125 Mg Tab) 3.125 mg PO BID [facility] Last Admin: 08/11/20 21:27 Dose: 3.125 mg Documented by: Famotidine (Famotidine 20 Mg/2 Ml Inj) 10 mg IV BID [facility] Last Admin: 08/11/20 21:25 Dose: 10 mg Documented by: Heparin Sodium (Porcine) (Heparin 5,000 Unit/1 Ml Vial) 5,000 unit SUB-Q BID [facility] Last Admin: 08/11/20 21:25 Dose: 5,000 unit Documented by: Hydromorphone HCl (Hydromorphone 1 Mg/1 Ml Inj) 0.5 mg IV Q3H PRN PRN Reason: Pain , Severe (7-10) Ceftriaxone Sodium (Rocephin/Ns 1 Gm/50 Ml) 1 gm in 50 mls @ 100 mls/hr IV Q24H [facility]; Protocol Last Admin: 08/12/20 04:09 Dose: 100 mls/hr Documented by: Metronidazole (Flagyl 500 Mg/100 Ml) 500 mg in 100 mls @ 100 mls/hr IV Q8H [facility]; Protocol Last Admin: 08/12/20 05:10 Dose: 100 mls/hr Documented by: Sodium Bicarbonate 150 meq/ (Dextrose) 1,150 mls @ 42 mls/hr IV DIRECT [facility] Last Admin: 08/11/20 16:30 Dose: 42 mls/hr Documented by: Lorazepam (Lorazepam 2 Mg/Ml Vial) 2 mg IV Q1H PRN PRN Reason: CIWA-Ar 8-15 Morphine Sulfate (Morphine 2 Mg/1 Ml Inj) 2 mg IV Q4H PRN PRN Reason: Pain, Moderate (4-6) Last Admin: 08/11/20 21:23 Dose: 2 mg Documented by: Naloxone HCl (Naloxone 0.4 Mg/1 Ml Inj) 0.1 mg IV Q2MIN PRN PRN Reason: Res Rate </= 8 or 02 SAT < 92% Nicotine (Nicotine 14 Mg/24 Hr Patch) 14 mg TD QDAY PRN PRN Reason: smoking cessation Stop: 08/18/20 04:05 Ondansetron HCl (Ondansetron 4 Mg/2 Ml Inj) 4 mg IV Q6H PRN PRN Reason: Nausea And Vomiting Sodium Chloride (Sodium Chloride 0.9% 10 Ml Flush Syringe) 10 ml IV BID [facility] Last Admin: 08/11/20 21:33 Dose: 10 ml Documented by: Sodium Chloride (Sodium Chloride 0.9% 10 Ml Flush Syringe) 10 ml IV PRN PRN PRN Reason: LINE FLUSH Review of Systems Cardiovascular: no chest pain, no palpitations, no edema, no syncope, no lightheadedness, no shortness of breath Physical Examination Vital Signs Temp Pulse Resp BP Pulse Ox 98.1 F 89 16 106/66 99 08/10/20 21:20 08/10/20 21:20 08/10/20 21:20 08/10/20 21:20 08/10/20 21:20 General appearance: no acute distress HEENT: Positive: PERRL Neck: Positive: trachea midline Cardiac: Positive: Reg Rate and Rhythm Lungs: Positive: Normal Breath Sounds Neuro: Positive: Grossly Intact Extremities: Absent: edema Results 08/12/20 04:23 08/12/20 04:23 Cardiac Enzymes 08/12/20 Range/Units 04:23 AST < 5 L (5-40) units/L CBC 08/11/20 08/12/20 Range/Units 14:48 04:23 WBC 15.2 H 12.7 H (4.5-11.0) K/mm3 RBC 2.79 L 2.50 L (3.65-5.03) M/mm3 Hgb 9.6 L 8.4 L (11.8-15.2) gm/dl Hct 25.1 L 22.3 L (35.5-45.6) % Plt Count 208 194 (140-440) K/mm3 Lymph # (Auto) 1.4 (1.2-5.4) K/mm3 Harper # (Auto) 1.1 H (0.0-0.8) K/mm3 Eos # (Auto) 0.1 (0.0-0.4) K/mm3 Baso # (Auto) 0.0 (0.0-0.1) K/mm3 Comprehensive Metabolic Panel 08/11/20 08/11/20 08/12/20 Range/Units 09:22 14:48 04:23 Sodium 131 L 132 L (137-145) mmol/L Potassium 5.4 H 5.5 H 4.9 (3.6-5.0) mmol/L Chloride 102.5 100.8 (98-107) mmol/L Carbon Dioxide 14 L 20 L (22-30) mmol/L BUN 45 H 43 H (9-20) mg/dL Creatinine 2.1 H 2.2 H (0.8-1.3) mg/dL Glucose 131 H 85 (75-100) mg/dL Calcium 8.6 9.2 (8.4-10.2) mg/dL AST < 5 L (5-40) units/L ALT < 5 L (7-56) units/L Alkaline Phosphatase 187 H (35-129) units/L Total Protein 6.7 (6.3-8.2) g/dL Albumin 2.8 L (3.9-5) g/dL Assessment and Plan Dilated, nonischemic CMP 03/2020 [facility]: no significant coronary artery disease 01/2020 echocardiogram revealed a four-chamber dilated cardiomyopathy, left ventricular ejection fraction about 20%. Chronic hypertension Chronic ETOH/tobacco abuse Acute pancreatitis Acute kidney injury
[2020-08-12] MEDS ORDERED: SPIRONOLACTONE 25 MG TAB PO SCH (10:00)
--- NOTE | 2020-08-12 10:04 | Progress Note ---
Assessment and Plan 1. Acute kidney injury: Vasomotor MICHEL in the setting of volume depletiob / pancreatitis. CT abdomen was negative for hydro. Continue IV fluids. Monitor renal function. Creatinine leveled off. Avoid nephrotoxic agents. Meds dosage based on GFR. 2. FEN: Hyponatremia, continue IV fluids. Hyperkalemia, improved, monitor. Anion-gap metabolic acidosis, bicarb drip, monitor. Hold Spironolactone, diuretics and ACEI. Monitor lytes and volume status. 3. Acute pancreatitis: 2/2 Alcohol abuse. IV fluids, pain control. Advance diet as tolerated. Monitor BP. 4. Alcohol abuse: Counseled. Monitor. 5. HFrEF: Appears compensated. Monitor. 6. HTN: Monitor BP. Subjective: Patient was seen and examined at the bedside. Doing better. Objective: General appearance: well-developed, appears stated age, not in distress HEENT: ATNC Neck: trachea midline Respiratory: ctab Heart: regular, S1S2, no murmur Gastrointestinal: soft, normoactive bowel sounds, not tender Integumentary: no rash, warm and dry Ext: no edema Neurologic: AO, non-focal Ext: no edema Subjective Date of service: 08/12/20 Objective - Vital Signs Vital signs: Vital Signs - 12hr 08/11/20 08/12/20 23:30 04:56 Temperature 98.1 F 98.6 F Pulse Rate 79 90 Respiratory 18 Rate Blood Pressure 100/52 111/73 O2 Sat by Pulse 94 97 Oximetry - Lab 08/12/20 04:23 08/12/20 04:23 Most recent lab results Calcium 9.2 mg/dL (8.4-10.2) 08/12/20 04:23 Phosphorus 4.00 mg/dL (2.5-4.5) 08/12/20 04:23 Magnesium 2.10 mg/dL (1.7-2.3) 08/12/20 04:23 Medications & Allergies - Medications Allergies/Adverse Reactions: Allergies No Known Allergies Allergy (Verified 03/03/15 22:21) Home Medications: Home Medications Medication Instructions Recorded Confirmed Last Taken Type Aspirin EC [Halfprin EC] 81 mg PO DAILY 04/28/20 08/11/20 04/27/20 History 81 mg Furosemide [Lasix TAB] 40 mg PO DAILY 04/28/20 08/11/20 04/27/20 History 40 mg Spironolactone [Aldactone] 25 mg PO DAILY 04/28/20 08/11/20 04/27/20 History 25 mg Valsartan [Diovan] 160 mg PO BID 04/28/20 08/11/20 04/27/20 History 160 mg carvediloL [Coreg] 6.25 mg PO BID 04/28/20 08/11/20 04/27/20 History 6.25mg Active Medications: Generic Name Dose Route Start Last Admin Trade Name Freq PRN Reason Stop Dose Admin Acetaminophen 650 mg 08/11/20 04:02 Acetaminophen 650 Mg Rect Supp AR Q4H PRN Pain MILD(1-3)/Fever >100.5/FRANCO Albuterol 2.5 mg 08/11/20 04:02 Albuterol 2.5 Mg/3 Ml Nebu IH Q4HRT PRN Shortness Of Breath Amlodipine Besylate 10 mg 08/12/20 10:00 Amlodipine 10 Mg Tab PO QDAY [facility] Aspirin 81 mg 08/12/20 10:00 Aspirin Ec 81 Mg Tab PO DAILY [facility] Carvedilol 3.125 mg 08/11/20 22:00 08/11/20 21:27 Carvedilol 3.125 Mg Tab PO 3.125 mg BID [facility] Administration Famotidine 10 mg 08/11/20 10:00 08/11/20 21:25 Famotidine 20 Mg/2 Ml Inj IV 10 mg BID [facility] Administration Heparin Sodium (Porcine) 5,000 unit 08/11/20 10:00 08/11/20 21:25 Heparin 5,000 Unit/1 Ml Vial SUB-Q 5,000 unit BID [facility] Administration Hydromorphone HCl 0.5 mg 08/11/20 04:02 Hydromorphone 1 Mg/1 Ml Inj IV Q3H PRN Pain , Severe (7-10) Ceftriaxone Sodium 1 gm in 50 mls @ 100 mls/hr 08/11/20 05:00 08/12/20 04:09 Rocephin/Ns 1 Gm/50 Ml IV 100 mls/hr Q24H [facility] Administration Protocol Metronidazole 500 mg in 100 mls @ 100 mls/hr 08/11/20 05:00 08/12/20 05:10 Flagyl 500 Mg/100 Ml IV 100 mls/hr Q8H [facility] Administration Protocol Sodium Bicarbonate 150 meq/ 1,150 mls @ 42 mls/hr 08/11/20 17:00 08/11/20 16:30 Dextrose IV 42 mls/hr DIRECT [facility] Administration Lorazepam 2 mg 08/11/20 04:08 Lorazepam 2 Mg/Ml Vial IV Q1H PRN CIWA-Ar 8-15 Morphine Sulfate 2 mg 08/11/20 04:02 08/11/20 21:23 Morphine 2 Mg/1 Ml Inj IV 2 mg Q4H PRN Administration Pain, Moderate (4-6) Naloxone HCl 0.1 mg 08/11/20 04:02 Naloxone 0.4 Mg/1 Ml Inj IV Q2MIN PRN Res Rate </= 8 or 02 SAT < 92% Nicotine 14 mg 08/11/20 04:06 Nicotine 14 Mg/24 Hr Patch TD 08/18/20 04:05 QDAY PRN smoking cessation Ondansetron HCl 4 mg 08/11/20 04:02 Ondansetron 4 Mg/2 Ml Inj IV Q6H PRN Nausea And Vomiting Sodium Chloride 10 ml 08/11/20 10:00 08/11/20 21:33 Sodium Chloride 0.9% 10 Ml Flush Syringe IV 10 ml BID [facility] Administration Sodium Chloride 10 ml 08/11/20 04:02 Sodium Chloride 0.9% 10 Ml Flush Syringe IV PRN PRN LINE FLUSH
[2020-08-12] MEDS: amLODIPine 10 MG TAB PO SCH (10:09)
[2020-08-12] MEDS: carvediloL 3.125 MG TAB PO SCH ×2 (10:09→22:00)
[2020-08-12] MEDS: FAMOTIDINE 20 MG/2 ML INJ IV SCH (10:09)
[2020-08-12] MEDS: ASPIRIN EC 81 MG TAB PO SCH (10:09)
[2020-08-12] MEDS: HEPARIN 5,000 UNIT/1 ML VIAL SUB-Q SCH ×2 (10:10→22:00)
--- NOTE | 2020-08-12 16:20 | Progress Note ---
Assessment and Plan This is a 54-year-old -[place] male who is an ongoing smoker recently diagnosed with CHF EF 20 to 25% (01/2020), with history of hypertension, arthritis, gout, questionable history of COPD who presents [facility] ED with complaints of abdominal pain, nausea and vomiting x2 days. CT abdomen pelvis was essentially unremarkable. Admission chemistry showed sodium 129, potassium 5.5 CO2 13, creatinine 2.3 lipase of 2053. Acute pancreatitis: Secondary to alcohol abuse -Lipase was 2053 on admission -Continue IV fluid hydration, advance diet as tolerated -as needed nausea and pain medications MICHEL, due to vasomotor nephropathy in the setting of severe pancreatitis -Continue gentle IV fluid hydration as patient also has history of CHF -Monitor BMP, consulted nephrology -We will hold diuretics and ACEI for now Chronic systolic CHF with EF 20% -Patient appears to be compensated we will hold any diuretics and ACEI for now -Consulted cardiology for further evaluation and management SIRS due to acute pancreatitis -Continue supportive care and monitor clinically -Discontinue antibiotics, patient is afebrile, negative blood culture -Normal UA Anemia likely due to chronic disease, monitor H&H -Continue folic acid, check vitamin B12 and folate level Mild hyponatremia due to severe dehydration, continue gentle IV fluid hydration, sodium level improving Hyperkalemia with metabolic acidosis and MICHEL -Status post Kayexalate, placed on bicarbonate drip, hold ACEI and diuretics -Potassium level trending down Alcohol abuse, counseled -Denies any recent use -Placed on folic acid and thiamine Hypertension, BP normotensive -Continue Coreg and Norvasc for now Peripancreatic nodes -Incidental finding seen on CT abdomen -Patient will require outpatient follow-up with GI DVT prophylaxis, Lovenox Daily clinical course: 08/12: Potassium level slightly trended down, remains acidotic with elevated crea tinine. Continue to hold Lasix Aldactone and ACEI. Advance diet. Lipase level has trended down. Continue to monitor renal function. If creatinine continues to trend down possible DC tomorrow. Subjective Date of service: 08/12/20 Interval history: Patient seen and examined. Medical records and medication list reviewed. No acute event overnight noted by the RN. Patient denies any chest pain or difficulty breathing. Patient is tolerating diet. Discussed plan of care at bedside with patient. Objective - Exam Narrative Exam: GENERAL: well-developed and well-nourished -[place] male lying on bed appeared to be in no discomfort. HEENT: Normocephalic. Atraumatic. No conjunctival congestion or icterus. Patient has moist mucous membranes. NECK: Supple. Trachea midline. CHEST/LUNGS: Clear to auscultated bilaterally, breathing nonlabored. No wheezes crackles or rhonchi. HEART/CARDIOVASCULAR: Regular in rate and rhythm. S1 and S2 positive. ABDOMEN: Abdomen is soft, nontender. Patient has normal bowel sounds. SKIN: There is no rash. Warm and dry. NEURO: No focal motor deficit. Follows command. MUSCULOSKELETAL: No joint effusion or tenderness. EXTRIMITY: No edema, no cyanosis or clubbing. PSYCH: Cooperative. - Constitutional Vitals: Vital Signs - 12hr 08/12/20 08/12/20 04:56 10:53 Temperature 98.6 F 98.2 F Pulse Rate 90 92 H Respiratory 18 Rate Blood Pressure 111/73 117/78 O2 Sat by Pulse 97 97 Oximetry - Labs CBC & Chem 7: 08/12/20 04:23 08/12/20 04:23 Labs: Abnormal lab results 08/12/20 08/12/20 Range/Units 04:23 04:23 WBC 12.7 H (4.5-11.0) K/mm3 RBC 2.50 L (3.65-5.03) M/mm3 Hgb 8.4 L (11.8-15.2) gm/dl Hct 22.3 L (35.5-45.6) % MCH 34 H (28-32) pg MCHC 35 H (32-34) % RDW 15.8 H (13.2-15.2) % Lymph % (Auto) 10.8 L (13.4-35.0) % Barren % (Auto) 9.0 H (0.0-7.3) % Barren # (Auto) 1.1 H (0.0-0.8) K/mm3 Seg Neutrophils % 79.4 H (40.0-70.0) % Seg Neutrophils # 10.1 H (1.8-7.7) K/mm3 Sodium 132 L (137-145) mmol/L Carbon Dioxide 20 L (22-30) mmol/L BUN 43 H (9-20) mg/dL Creatinine 2.2 H (0.8-1.3) mg/dL AST < 5 L (5-40) units/L ALT < 5 L (7-56) units/L Alkaline Phosphatase 187 H (35-129) units/L Albumin 2.8 L (3.9-5) g/dL Lipase 223 H (13-60) units/L
[2020-08-12] MEDS: FOLIC ACID 1 MG TAB PO SCH (18:02)
[2020-08-12] MEDS: FAMOTIDINE 10 MG TAB PO SCH (22:00)
[2020-08-13] MEDS: MORPHINE 2 MG/1 ML INJ IV PRN (04:08)
[2020-08-13] MEDS: carvediloL 3.125 MG TAB PO SCH (09:12)
[2020-08-13] MEDS: FAMOTIDINE 10 MG TAB PO SCH (09:12)
[2020-08-13] MEDS: ASPIRIN EC 81 MG TAB PO SCH (09:13)
[2020-08-13] MEDS: HEPARIN 5,000 UNIT/1 ML VIAL SUB-Q SCH (09:13)
[2020-08-13] MEDS: FOLIC ACID 1 MG TAB PO SCH (09:13)
[2020-08-13] MEDS: amLODIPine 10 MG TAB PO SCH (09:13)
[2020-08-13] MEDS ORDERED: ACETAMINOPHEN 325 MG TAB PO PRN (09:36)
--- NOTE | 2020-08-13 09:46 | Progress Note ---
Assessment and Plan Dilated, nonischemic CMP 03/2020 [facility]: no significant coronary artery disease 01/2020 echocardiogram revealed a four-chamber dilated cardiomyopathy, left ventricular ejection fraction about 20%. Chronic hypertension Chronic ETOH/tobacco abuse Acute pancreatitis Acute kidney injury Recommend: Continue optimal guideline directed medical therapy as for nonischemic cardiomyopathy as tolerated. Subjective Date of service: 08/13/20 Interval history: Patient is resting in bed comfortably. No cardiac complaints. Objective Vital Signs Temp Pulse Resp BP Pulse Ox 08/13/20 05:53 99.5 F 88 16 139/80 97 08/12/20 22:00 93 H 106/73 08/12/20 21:19 97.5 F L 86 16 106/73 98 08/12/20 16:24 98.9 F 93 H 22 103/59 96 08/12/20 10:53 98.2 F 92 H 18 117/78 97 - Physical Examination General: No Apparent Distress HEENT: Positive: PERRL Neck: Positive: trachea midline Cardiac: Positive: Reg Rate and Rhythm Lungs: Positive: Normal Breath Sounds Neuro: Positive: Grossly Intact Extremities: Absent: edema
--- NOTE | 2020-08-13 10:00 | Progress Note ---
Assessment and Plan 1. Acute kidney injury: Vasomotor MICHEL in the setting of volume depletiob / pancreatitis. CT abdomen was negative for hydro. Continue IV fluids. Monitor renal function. Creatinine level is improving. Avoid nephrotoxic agents. Meds dosage based on GFR. 2. FEN: Hyponatremia, stable. Hyperkalemia, improved, monitor. Anion-gap metabolic acidosis, improved, monitor. Hold Spironolactone, diuretics and ACEI. Monitor lytes and volume status. 3. Acute pancreatitis: 2/2 Alcohol abuse. Able to tolerate PO. 4. Alcohol abuse: Counseled. Monitor. 5. HFrEF: Appears compensated. Monitor. 6. HTN: Monitor BP. F/u with me in 1-2 weeks. Subjective: Patient was seen and examined at the bedside. Doing better. Objective: General appearance: well-developed, appears stated age, not in distress HEENT: ATNC Neck: trachea midline Respiratory: ctab Heart: regular, S1S2, no murmur Gastrointestinal: soft, normoactive bowel sounds, not tender Integumentary: no rash, warm and dry Ext: no edema Neurologic: AO, non-focal Ext: no edema Subjective Date of service: 08/13/20 Objective - Vital Signs Vital signs: Vital Signs - 12hr 08/13/20 05:53 Temperature 99.5 F Pulse Rate 88 Respiratory 16 Rate Blood Pressure 139/80 O2 Sat by Pulse 97 Oximetry - Lab 08/13/20 09:41 08/13/20 15:00 Most recent lab results Calcium 9.2 mg/dL (8.4-10.2) 08/12/20 04:23 Phosphorus 4.00 mg/dL (2.5-4.5) 08/12/20 04:23 Magnesium 2.10 mg/dL (1.7-2.3) 08/12/20 04:23 Medications & Allergies - Medications Allergies/Adverse Reactions: Allergies No Known Allergies Allergy (Verified 03/03/15 22:21) Home Medications: Home Medications Medication Instructions Recorded Confirmed Last Taken Type Aspirin EC [Halfprin EC] 81 mg PO DAILY 04/28/20 08/11/20 04/27/20 History 81 mg Folic Acid [Folvite] 1 mg PO QDAY #30 tablet 08/13/20 Unknown Rx amLODIPine 10 mg PO QDAY #30 tablet 08/13/20 Unknown Rx carvediloL [Coreg] 3.125 mg PO BID #60 tablet 08/13/20 Unknown Rx Active Medications: Generic Name Dose Route Start Last Admin Trade Name Freq PRN Reason Stop Dose Admin Acetaminophen 650 mg 08/13/20 09:36 08/13/20 09:43 Acetaminophen 325 Mg Tab PO 650 mg Q4H PRN Administration Pain, Mild (1-3) Albuterol 2.5 mg 08/11/20 04:02 Albuterol 2.5 Mg/3 Ml Nebu IH Q4HRT PRN Shortness Of Breath Amlodipine Besylate 10 mg 08/12/20 10:00 08/13/20 09:13 Amlodipine 10 Mg Tab PO 10 mg QDAY JAQUELINE Administration Aspirin 81 mg 08/12/20 10:00 08/13/20 09:13 Aspirin Ec 81 Mg Tab PO 81 mg DAILY JAQUELINE Administration Carvedilol 3.125 mg 08/11/20 22:00 08/13/20 09:12 Carvedilol 3.125 Mg Tab PO 3.125 mg BID JAQUELINE Administration Famotidine 10 mg 08/12/20 22:00 08/13/20 09:12 Famotidine 10 Mg Tab PO 10 mg BID JAQUELINE Administration Folic Acid 1 mg 08/12/20 18:00 08/13/20 09:13 Folic Acid 1 Mg Tab PO 1 mg QDAY JAQUELINE Administration Heparin Sodium (Porcine) 5,000 unit 08/11/20 10:00 08/13/20 09:13 Heparin 5,000 Unit/1 Ml Vial SUB-Q 5,000 unit BID JAQUELINE Administration Hydromorphone HCl 0.5 mg 08/11/20 04:02 Hydromorphone 1 Mg/1 Ml Inj IV Q3H PRN Pain , Severe (7-10) Sodium Bicarbonate 150 meq/ 1,150 mls @ 42 mls/hr 08/11/20 17:00 08/11/20 16:30 Dextrose IV 42 mls/hr DIRECT JAQUELINE Administration Lorazepam 2 mg 08/11/20 04:08 Lorazepam 2 Mg/Ml Vial IV Q1H PRN CIWA-Ar 8-15 Morphine Sulfate 2 mg 08/11/20 04:02 08/13/20 04:08 Morphine 2 Mg/1 Ml Inj IV 2 mg Q4H PRN Administration Pain, Moderate (4-6) Naloxone HCl 0.1 mg 08/11/20 04:02 Naloxone 0.4 Mg/1 Ml Inj IV Q2MIN PRN Res Rate </= 8 or 02 SAT < 92% Nicotine 14 mg 08/11/20 04:06 Nicotine 14 Mg/24 Hr Patch TD 08/18/20 04:05 QDAY PRN smoking cessation Ondansetron HCl 4 mg 08/11/20 04:02 Ondansetron 4 Mg/2 Ml Inj IV Q6H PRN Nausea And Vomiting Sodium Chloride 10 ml 08/11/20 10:00 08/13/20 09:13 Sodium Chloride 0.9% 10 Ml Flush Syringe IV Not Given BID JAQUELINE Sodium Chloride 10 ml 08/11/20 04:02 Sodium Chloride 0.9% 10 Ml Flush Syringe IV PRN PRN LINE FLUSH
[2020-08-13 10:10] LABS: Hematocrit 22.5 % (35.5-45.6); Hemoglobin 8.1 gm/dl (11.8-15.2)
--- NOTE | 2020-08-13 11:26 | Electrocardiograph Report ---
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
--- NOTE | 2020-08-13 15:07 | Discharge Summary ---
Providers - Providers Date of Admission: 08/11/20 02:51 Date of discharge: 08/13/20 Attending physician: DAMARIS MCGINNIS 08/11/20 15:45 Consult to Physician [CONS] Routine Comment: Consulting Provider: ANDREW THOMPSON Physician Instructions: Reason For Exam: MICHEL 08/11/20 15:50 Consult to Physician [CONS] Routine Comment: Consulting Provider: JARETH PELAYO Physician Instructions: Reason For Exam: CHF Primary care physician: KEY FILER Hospitalization Condition: Stable Pertinent studies: CT abdomen pelvis: 1. Acute pancreatitis involving the head, neck, and uncinate. No complications are identified given noncontrast technique. 2. Hypodensity in the medial cortex measuring 2.1 cm is likely a cyst. Hospital course: This is a 54-year-old -[place] male who is an ongoing smoker recently diagnosed with CHF EF 20 to 25% (01/2020), with history of hypertension, arthritis, gout, questionable history of COPD who presents [facility] ED with complaints of abdominal pain, nausea and vomiting x2 days. CT abdomen pelvis was essentially unremarkable. Admission chemistry showed sodium 129, potassium 5.5 CO2 13, creatinine 2.3 lipase of 2053. Patient started on IV fluid hydration, was admitted for alcoholic acute pancreatitis, SIRS, hyponatremia, hyperkalemia and MICHEL. Daily clinical course: 08/11; CT abdomen pelvis was essentially unremarkable. Admission chemistry showed sodium 129, potassium 5.5 CO2 13, creatinine 2.3 lipase of 2053. We'll start her on gentle bicarbonate drip for persistent hyperkalemia metabolic acidosis MICHEL We'll hold his spironolactone IV diuretics and ACEI for hyperkalemia and MICHEL Start on clear liquid diet, Consult nephrology, consult cardiology Monitor clinically with supportive care, Repeat chemistry in the morning 08/12: Potassium level slightly trended down, remains acidotic with elevated creatinine. Continue to hold Lasix Aldactone and ACEI. Advance diet. Lipase level has trended down. Continue to monitor renal function, continue bicarbonate drip. Follow cardiology and nephrology recommendation for discharge medications. If creatinine continues to trend down possible DC tomorrow. 08/13: Patient has been tolerating diet, no nausea vomiting. Lipase level has trended down. Repeat BMP showed resolved hyperkalemia and metabolic acidosis. Creatinine improved from 2.3 to 1.9. Sodium level improved 1 29 to 1 33. Patient was recommended to continue to hold ACEI and diuretics following discharge for now. Patient in follow-up with motorized squad captain and fishing guide with a repeat BMP in 1 week. Resuming ACEI and diuretics will be depending on his laboratory findings as outpatient. Patient was counseled for alcohol cessation which he states that he already did. His folic acid level was low, started on supplement, instructed to follow-up with GI to schedule a outpatient screening colonoscopy. Discharge plan and management was thoroughly discussed with the patient, plan also discussed with fishing guide and motorized squad captain. Patient was cleared by motorized squad captain and fishing guide for discharge. Patient was discharged home in stable condition with outpatient follow-up. Disposition: DC-01 TO HOME OR SELFCARE Final Discharge Diagnosis (Prints w/discharge instructions): Acute alcoholic pancreatitis, MICHEL due to vasomotor nephropathy in the setting of severe pancreatitis cannot rule out underlying CKD, chronic systolic CHF with EF 20%, SIRS due to acute pancreatitis, anemia likely due to chronic disease and folate deficiency-need repeat H&H in 1 week and follow-up with GI for outpatient screening colonoscopy, mild hyponatremia due to severe dehydration, hyperkalemia with metabolic acidosis, alcohol abuse, hypertension, peripancreatic node's will require outpatient follow-up. Time spent for discharge: 34 minutes Core Measure Documentation - Palliative Care Palliative Care/ Comfort Measures: Not Applicable - Core Measures Any of the following diagnoses?: history only Exam - Physical Exam Narrative exam: GENERAL: well-developed and well-nourished -[place] male lying on bed appeared to be in no discomfort. HEENT: Normocephalic. Atraumatic. No conjunctival congestion or icterus. Patient has moist mucous membranes. NECK: Supple. Trachea midline. CHEST/LUNGS: Clear to auscultated bilaterally, breathing nonlabored. No wheezes crackles or rhonchi. HEART/CARDIOVASCULAR: Regular in rate and rhythm. S1 and S2 positive. ABDOMEN: Abdomen is soft, nontender. Patient has normal bowel sounds. SKIN: There is no rash. Warm and dry. NEURO: No focal motor deficit. Follows command. MUSCULOSKELETAL: No joint effusion or tenderness. EXTRIMITY: No edema, no cyanosis or clubbing. PSYCH: Cooperative. - Constitutional Vitals: Temp Pulse Resp BP Pulse Ox 99.0 F 88 20 110/66 97 08/13/20 11:01 08/13/20 11:01 08/13/20 11:01 08/13/20 11:01 08/13/20 11:01 Plan Activity: advance as tolerated Weight Bearing Status: Weight Bear as Tolerated Diet: low fat, renal Special Instructions: restrict fluid intake to (1.2L daily), record daily BP diary Additional Instructions: Need repeat BMP and CBC in 1 week. Please follow-up with motorized squad captain and fishing guide in 1 week in order to restart your diuretics and ACEI. Follow-up with the GI for screening colonoscopy as outpatient. Follow up with: PRIMARY CAREMD [Primary Care Provider] - 3-5 Days JARETH PELAYO MD [Staff Physician] - 7 Days ANDREW THOMPSON MD [Staff Physician] - 7 Days Prescriptions: amLODIPine 10 mg PO QDAY #30 tablet carvediloL [Coreg] 3.125 mg PO BID #60 tablet Folic Acid [Folvite] 1 mg PO QDAY #30 tablet
[2020-08-13 15:20] LABS: Calcium 8.4 mg/dL (8.4-10.2)
[2020-08-13 17:10] VITALS: BP 134/80
== END 2020-08-13 18:05 | disposition home or self-care (01) | DRG 438 ==
LOC: ED 19:39 → 3A 08-11 02:51
PROVIDERS: ADMIT Internal Medicine Geriatric Medicine; ATTEND Internal Medicine
DX: K85.20 Alcohol induced acute pancreatitis without necrosis or infection (principal); N17.0 Acute kidney failure with tubular necrosis; E87.1 Hypo-osmolality and hyponatremia; E87.2 Acidosis; I50.22 Chronic systolic (congestive) heart failure; R65.10 Systemic inflammatory response syndrome (SIRS) of non-infectious origin without acute organ dysfunction; I11.0 Hypertensive heart disease with heart failure; M10.9 Gout, unspecified; M19.90 Unspecified osteoarthritis, unspecified site; J44.9 Chronic obstructive pulmonary disease, unspecified; D72.829 Elevated white blood cell count, unspecified; E86.0 Dehydration; D63.8 Anemia in other chronic diseases classified elsewhere; E87.5 Hyperkalemia; F17.200 Nicotine dependence, unspecified, uncomplicated; Z79.899 Other long term (current) drug therapy; Z79.891 Long term (current) use of opiate analgesic; Z79.01 Long term (current) use of anticoagulants; Z79.82 Long term (current) use of aspirin; Z95.818 Presence of other cardiac implants and grafts; Z81.1 Family history of alcohol abuse and dependence; Z81.2 Family history of tobacco abuse and dependence; Z71.6 Tobacco abuse counseling; Z82.49 Family history of ischemic heart disease and other diseases of the circulatory system
CPT/HCPCS: 36415; 74176; 80048; 80053; 81001; 82607; 82747; 83690; 83735; 84100; 84132; 85007; 85014; 85018; 85025; 85027; 87040; 93005; G0378; J0696; J1644; J1940; J2270; J2405; J7030; J7070

== ENCOUNTER 2020-08-18 12:16 | Emergency (ER) | payer OTHER ==
--- NOTE | 2020-08-18 13:14 | Event Note ---
ED Screening Note ED Screening Note: Patient is a 54-year-old male presents emergency room with complaints of swelling of his right upper extremity from the elbow to the digits He states he also has swelling in the bilateral lower extremities Patient states his symptoms began 2 days ago Patient was recently admitted in the hospital for acute pancreatitis and he reports that his medications were changed, he states 2 days ago when he noticed the swelling he stopped all of his medications This initial assessment/diagnostic orders/clinical plan/treatment(s) is/are subject to change based on patients health status, clinical progression and re- assessment by fellow clinical providers in the ED. Further treatment and workup at subsequent clinical providers discretion. Patient/guardian urged not to elope from the ED as their condition may be serious if not clinically assessed and managed. Initial orders include: Labs, ultrasound
--- NOTE | 2020-08-18 13:57 | Vascular Lab Report ---
DUPLEX DOPPLER UPPER EXTREMITY VENOUS, RIGHT INDICATION / CLINICAL INFORMATION: RUE swelling and pain. TECHNIQUE: Duplex doppler imaging was performed through the veins of the right upper extremity using venous comp ression and other maneuvers. COMPARISON: None available. FINDINGS: RIGHT INTERNAL JUGULAR VEIN: Negative. RIGHT SUBCLAVIAN VEIN: Negative. RIGHT AXILLARY VEIN: Negative. RIGHT BRACHIAL VEIN: Negative. RIGHT FOREARM VEINS: Negative. RIGHT BASILIC VEIN (SUPERFICIAL): Negative. ADDITIONAL FINDINGS: None. IMPRESSION: 1. No sonographic evidence for DVT. Signer Name: Marquis Argueta MD Signed: 08/18/2020 1:52 PM Workstation Name: [id number]
[2020-08-18 14:39] LABS: Hematocrit 20.9 % (35.5-45.6); Mean Corpuscular HGB Conc 33 % (32-34); Mean Corpuscular Volume 94 fl (84-94); Platelet Count 331 K/mm3 (140-440); Red Blood Count 2.23 M/mm3 (3.65-5.03); Red Cell Distribution Width 16.5 % (13.2-15.2)
[2020-08-18 15:03] LABS: Albumin 3.4 g/dL (3.9-5); Calcium 9.6 mg/dL (8.4-10.2)
[2020-08-18 16:28] LABS: C-Reactive Protein 9.3 mg/dL (0.00-1.30); Uric Acid 11.3 mg/dL (3.5-7.6)
[2020-08-18 16:39] LABS: Band Neutrophils # (Manual) 0.2 K/mm3; Total Cells Counted 100
[2020-08-18 16:40] LABS: Giant Platelets Rare; Large Platelets Rare; Platelet Estimate Consistent w Auto; RBC Morphology Normal
--- NOTE | 2020-08-18 20:48 | Cat Scan Report ---
CT CHEST, ABDOMEN, AND PELVIS WITHOUT CONTRAST INDICATION / CLINICAL INFORMATION: diffuse swelling acute kidney injury. TECHNIQUE: Axial CT images were obtained through the chest, abdomen, and pelvis without contrast. All CT scans at this location are performed using CT dose reduction for ALARA by means of automated expo sure control. COMPARISON: CT chest 02/22/2020, CT abdomen and pelvis 08/11/2020 FINDINGS: HEART/VASCULAR STRUCTURES: No significant abnormality. MEDIASTINUM / CARL: Prominent mediastinal nodes have slightly decreased in size. PLEURA: No pleural effusion. No pneumothorax. LUNGS: No acute air space or interstitial disease. ADDITIONAL CHEST FINDINGS: Axillary nodes are slightly more prominent. The largest is at the right ax illa measuring 1.7 x 1.4 cm. LIVER: No significant abnormality. GALLBLADDER: No significant abnormality. BILE DUCTS: No significant abnormality. PANCREAS: Enlargement of the pancreatic head/uncinate process with adjacent inflammation remains with slight improvement. SPLEEN: No significant abnormality. ADRENALS: No significant abnormality. RIGHT KIDNEY / URETER: Right cyst unchanged. LEFT KIDNEY / URETER: No significant abnormality. STOMACH and SMALL BOWEL: Secondary involvement of the duodenum remains. COLON: No significant abnormality. APPENDIX: No significant abnormality. PERITONEUM: Fluid tracks along the right anterior pararenal fascia without significant change. No андрей e air. No fluid collection. LYMPH NODES: No significant adenopathy. VASCULAR STRUCTURES: No significant abnormality. URINARY BLADDER: No significant abnormality. REPRODUCTIVE ORGANS: No significant abnormality. ADDITIONAL FINDINGS: None. SKELETAL SYSTEM: No significant abnormality. IMPRESSION: 1. Persistent changes of pancreatitis with overall minimal improvement. 2. No new abnormality at the abdomen. 3. Mild increasing adenopathy at the axillary regions is likely reactive. Mediastinal adenopathy is s lightly improved. Signer Name: Alcon Rodriguez MD Signed: 08/18/2020 8:43 PM Workstation Name: [id number]
[2020-08-19] MEDS ORDERED: amLODIPine 10 MG TAB PO STA (00:31)
[2020-08-19] MEDS ORDERED: ASPIRIN EC 81 MG TAB PO STA (00:31)
[2020-08-19] MEDS ORDERED: carvediloL 3.125 MG TAB PO STA (00:31)
[2020-08-19] MEDS ORDERED: FOLIC ACID 1 MG TAB PO STA (00:31)
[2020-08-19] MEDS ORDERED: predniSONE 20 MG TAB PO ONE (00:32)
[2020-08-19] MEDS ORDERED: ACETAMINOPHEN 500 MG TAB PO ONE (00:32)
--- NOTE | 2020-08-19 01:23 | Emergency Department Report ---
ED General Adult HPI - General Chief complaint: Extremity Injury, Lower Stated complaint: SWOLLEN RIGHT WRIST, KNEES, ANKLE PUI?: No Time Seen by Provider: 08/18/20 13:12 Source: patient, RN notes reviewed, old records reviewed Mode of arrival: Ambulatory Limitations: No Limitations - History of Present Illness Initial comments: The patient was evaluated in the emergency department for symptoms described in the history of present illness. He/she was evaluated in the context of the global COVID-19 pandemic, which necessitated consideration that the patient might be at risk for infection with the virus that causes COVID-19. Institutional protocols and algorithms that pertain to the evaluation of patients at risk for COVID-19 are in a state of rapid change based on information released by regulatory bodies including the CDC and federal and state organizations. These policies and algorithms were followed during the jacquelyn thomas's care in the emergency department. Please note that these policies, procedures and recommendations changed on a rapid basis. This is a 54-year-old gentleman. I have evaluated this patient in the past. Past medical history includes tobacco use, CHF, EF 20 to 25%, hypertension, arthritis, gout, COPD, body mass index 28, pancreatitis, renal insufficiency, [id number]. The patient presents to the ER today with a complaint of nontraumatic right hand, wrist, and forearm pain and swelling, bilateral knee pain, bilateral ankle pain. The patient denies headache, neck pain, chest pain, abdominal pain, new/different shortness of breath, dysuria, loss of taste, loss of smell. He also has bilateral lower extremity swelling. This patient was recently admitted to the hospitalist service for renal insufficiency, anabolic acidosis, and pancreatitis. He had a somewhat complicated hospital course and was discharged, with instructions to follow-up with cardiology, nephrology, and to hold LLUVIA inhibitor and diuretics, following discharge. The patient does admits to some dietary indiscretions, including some consumption of beer, red wine, and some salty foods. He feels like he is "breathing is okay." He feels like his "gout" is "acting up", primarily in his right upper extremity. 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 His right wrist pain is throbbing and aching, increases with palpation, range of motion, and decreases with rest. He subjectively feels like his "pancreas" is "okay." -: Gradual, days(s) Location: right (Right upper extremity), lower extremity (Bilateral lower extremities) Radiation: non-radiation Severity scale (0 -10): 7 Quality: aching Consistency: intermittent Improves with: rest Worsens with: movement - Related Data Previous Rx's Medication Instructions Recorded Last Taken Type Acetaminophen [Non-Aspirin Extra 500 mg PO Q6HR PRN #30 tablet 08/19/20 Unknown Rx Strength] Aspirin EC [Halfprin EC] 81 mg PO DAILY #30 08/19/20 Unknown Rx Folic Acid [Folvite] 1 mg PO QDAY #30 tablet 08/19/20 Unknown Rx amLODIPine 10 mg PO QDAY #30 tablet 08/19/20 Unknown Rx carvediloL [Coreg] 3.125 mg PO BID #60 tablet 08/19/20 Unknown Rx predniSONE [Deltasone] 5 mg PO .TAPER #48 tab 08/19/20 Unknown Rx Allergies Allergy/AdvReac Type Severity Reaction Status Date / Time No Known Allergies Allergy Verified 08/18/20 13:10 ED Review of Systems ROS: Stated complaint: SWOLLEN RIGHT WRIST, KNEES, ANKLE Other details as noted in HPI Constitutional: other (Denies loss of taste and smell). denies: fever, malaise, weakness ENT: denies: dental pain Respiratory: denies: shortness of breath Cardiovascular: edema (Bilateral lower extremity edema) Gastrointestinal: denies: abdominal pain, nausea, vomiting, hematemesis, melena, hematochezia Genitourinary: denies: dysuria Musculoskeletal: back pain, joint swelling, arthralgia, myalgia Hematological/Lymphatic: denies: easy bleeding ED Past Medical Hx - Past Medical History Hx Hypertension: Yes Hx Heart Attack/AMI: No Hx Congestive Heart Failure: Yes Hx Diabetes: No Hx Deep Vein Thrombosis: No Hx Pulmonary Embolism: No Hx Liver Disease: No Hx Renal Disease: No Hx Sickle Cell Disease: No Hx Arthritis: Yes Hx Seizures: No Hx Kidney Stones: No Hx Asthma: No Hx COPD: No Hx Tuberculosis: No Hx Dementia: No Hx HIV: No Additional medical history: Gout, arthritis - Surgical History Hx Coronary Stent: Yes Hx Open Heart Surgery: No Hx Pacemaker: No Hx Internal Defibrillator: No Hx Cholecystectomy: No Hx Appendectomy: No Hx Breast Surgery: No - Social History Smoking Status: Never Smoker Substance Use Type: None - Medications Home Medications: Home Medications Medication Instructions Recorded Confirmed Last Taken Type Acetaminophen [Non-Aspirin Extra 500 mg PO Q6HR PRN #30 tablet 08/19/20 Unknown Rx Strength] Aspirin EC [Halfprin EC] 81 mg PO DAILY #30 08/19/20 Unknown Rx Folic Acid [Folvite] 1 mg PO QDAY #30 tablet 08/19/20 Unknown Rx amLODIPine 10 mg PO QDAY #30 tablet 08/19/20 Unknown Rx carvediloL [Coreg] 3.125 mg PO BID #60 tablet 08/19/20 Unknown Rx predniSONE [Deltasone] 5 mg PO .TAPER #48 tab 08/19/20 Unknown Rx ED Physical Exam - General Limitations: No Limitations General appearance: alert, in no apparent distress, obese - Head Head exam: Present: atraumatic, normocephalic - Eye Eye exam: Present: normal appearance, EOMI. Absent: nystagmus - ENT ENT exam: Present: normal exam, normal orophraynx, mucous membranes moist, normal external ear exam - Neck Neck exam: Present: normal inspection, full ROM. Absent: tenderness, meningismus - Respiratory Respiratory exam: Present: normal lung sounds bilaterally. Absent: respiratory distress, wheezes, rales, rhonchi, stridor, decreased breath sounds - Cardiovascular Cardiovascular Exam: Present: regular rate, normal rhythm, normal heart sounds. Absent: bradycardia, tachycardia, irregular rhythm, systolic murmur, diastolic murmur, rubs, gallop - GI/Abdominal GI/Abdominal exam: Present: soft, normal bowel sounds. Absent: distended, tenderness, guarding, rebound, rigid, pulsatile mass - Rectal Rectal exam: Present: deferred - Extremities Exam Extremities exam: Present: normal inspection (Chronic venous stasis changes noted to the bilateral dorsal aspects of the feet.), full ROM, tenderness (The right hand and wrist are swollen. They are mildly tender. There is no redness, pus or streaking. Range of motion of the wrist is intact, but it is painful for the patient to range.), pedal edema (1+ edema bilateral lower extremities.), other (2+ pulses noted in the bilateral upper and lower extremities. There is no palpable cord. negative Homans sign. Muscular compartments are soft. The pelvis is stable.). Absent: calf tenderness - Back Exam Back exam: Present: normal inspection. Absent: tenderness, CVA tenderness (R), CVA tenderness (L), paraspinal tenderness, vertebral tenderness - Neurological Exam Neurological exam: Present: alert, oriented X3, other (No facial droop. Tongue midline. Extraocular movements intact bilaterally. Facial sensation intact to light touch in V1, V2, V3 distribution bilaterally. 5 and a 5 strength in 4 extremities. Sensation intact to light touch in 4 extremities.). Absent: motor sensory deficit - Psychiatric Psychiatric exam: Present: normal affect, normal mood - Skin Skin exam: Present: warm, dry, intact, normal color. Absent: rash ED Course Vital Signs 08/18/20 08/19/20 08/19/20 13:07 00:22 00:23 Temperature 98.4 F Pulse Rate 105 H 83 85 Respiratory 20 14 11 L Rate Blood Pressure 147/84 160/87 O2 Sat by Pulse 98 100 100 Oximetry 08/19/20 08/19/20 08/19/20 00:25 00:27 00:29 Temperature Pulse Rate 82 83 76 Respiratory 11 L 26 H 23 Rate Blood Pressure 160/87 160/87 160/87 O2 Sat by Pulse 100 100 100 Oximetry 08/19/20 08/19/20 08/19/20 00:31 00:33 00:35 Temperature Pulse Rate 73 76 77 Respiratory 21 21 24 Rate Blood Pressure 142/83 142/83 142/83 O2 Sat by Pulse 100 100 100 Oximetry - Reevaluation(s) Reevaluation #1: 08/19/20 01:25 Differential diagnosis, including but not limited to: Acute gouty arthritis, chronic renal insufficiency, dependent edema, anemia of chronic disease, stress leukocytosis, right upper extremity DVT Assessment and plan: 54-year-old gentleman, who is afebrile with reassuring vital signs, with a primary complaint of right arm/hand/wrist pain and swelling, without redness, pus or streaking, range of motion is intact, although painful, this is likely gouty arthritis, and less likely to be septic joint. Laboratory studies were sent prior to my personal evaluation of this patient, and he also had a CT scan of the chest abdomen pelvis which were ordered prior to my personal evaluation of this patient. Leukocytosis is likely a stress reaction. Anemia is chronic. Renal insufficiency slightly worse than when compared to prior, decreased CO2 likely secondary to renal insufficiency. Elevated lipase reviewed and appreciated, abdomen soft and benign, without rebound, guarding or peritoneal signs, patient has no abdominal pain or complaints at this time, denies GI bleed symptoms, he is producing urine, has clear lungs, and what appears to be dependent edema on his bilateral lower extremities. I had extensive discussion with the patient regarding various options for management. The patient states he would much prefer to be discharged, to follow-up as an outpatient. He states he is reliable to follow-up as an outpatient. We will hold LLUVIA inhibitor, diuretics, but continue folic acid, aspirin, initiate steroid burst, continue Coreg, and amlodipine. Right upper extremity DVT study is negative for acute findings. Noncontrast CT scan of the chest, abdomen, pelvis has not demonstrated in any acute or emergent findings which would require emergency intervention. I also contacted his tax audit manager of record, Dr. Flaquita Thompson, and we discussed the patient's history, physical, pertinent laboratory studies and imaging findings. He is also in agreement that it would be reasonable for trial of outpatient management. The patient and I discussed diet and lifestyle recommendations. Through shared decision-making, patient and I agreed to discharge with bianca smith diet lifestyle modifications, appropriate medications, and instructions to very closely follow-up with outpatient primary care, GI, cardiology, and nephrology. This patient has been observed in this ER for a prolonged period of time, without clinical decompensation. 08/19/20 01:52 08/19/20 01:54 ED Medical Decision Making - Lab Data Result diagrams: 08/18/20 13:52 08/18/20 13:52 Vital Signs 08/18/20 08/19/20 08/19/20 13:07 00:22 00:23 Temperature 98.4 F Pulse Rate 105 H 83 85 Respiratory 20 14 11 L Rate Blood Pressure 147/84 160/87 O2 Sat by Pulse 98 100 100 Oximetry 08/19/20 08/19/20 08/19/20 00:25 00:27 00:29 Temperature Pulse Rate 82 83 76 Respiratory 11 L 26 H 23 Rate Blood Pressure 160/87 160/87 160/87 O2 Sat by Pulse 100 100 100 Oximetry 08/19/20 08/19/20 08/19/20 00:31 00:33 00:35 Temperature Pulse Rate 73 76 77 Respiratory 21 21 24 Rate Blood Pressure 142/83 142/83 142/83 O2 Sat by Pulse 100 100 100 Oximetry Lab Results 08/18/20 08/18/20 08/18/20 Range/Units 13:52 13:52 13:52 WBC 16.9 H (4.5-11.0) K/mm3 RBC 2.23 L (3.65-5.03) M/mm3 Hgb 7.0 L (11.8-15.2) gm/dl Hct 20.9 L (35.5-45.6) % MCV 94 (84-94) fl MCH 31 (28-32) pg MCHC 33 (32-34) % RDW 16.5 H (13.2-15.2) % Plt Count 331 (140-440) K/mm3 Add Manual Diff Complete Total Counted 100 Seg Neuts % (Manual) 71.0 H (40.0-70.0) % Band Neutrophils % 1.0 % Lymphocytes % (Manual) 20.0 (13.4-35.0) % Monocytes % (Manual) 6.0 (0.0-7.3) % Eosinophils % (Manual) 1.0 (0.0-4.3) % Metamyelocytes % 1.0 % Nucleated RBC % Not Reportable Seg Neutrophils # Man 12.0 H (1.8-7.7) K/mm3 Band Neutrophils # 0.2 K/mm3 Lymphocytes # (Manual) 3.4 (1.2-5.4) K/mm3 Abs React Lymphs (Man) 0.0 K/mm3 Monocytes # (Manual) 1.0 H (0.0-0.8) K/mm3 Eosinophils # (Manual) 0.2 (0.0-0.4) K/mm3 Basophils # (Manual) 0.0 (0.0-0.1) K/mm3 Metamyelocytes # 0.2 K/mm3 Myelocytes # 0.0 K/mm3 Promyelocytes # 0.0 K/mm3 Blast Cells # 0.0 K/mm3 WBC Morphology Not Reportable Hypersegmented Neuts Not Reportable Hyposegmented Neuts Not Reportable Hypogranular Neuts Not Reportable Smudge Cells Not Reportable Toxic Granulation Not Reportable Toxic Vacuolation Not Reportable Dohle Bodies Not Reportable Pelger-Huet Anomaly Not Reportable Alexander Rods Not Reportable Platelet Estimate Consistent w auto Clumped Platelets Not Reportable Plt Clumps, EDTA Not Reportable Large Platelets Rare Giant Platelets Rare Platelet Satelliting Not Reportable Plt Morphology Comment Not Reportable RBC Morphology Normal Dimorphic RBCs Not Reportable Polychromasia Not Reportable Hypochromasia Not Reportable Poikilocytosis Not Reportable Anisocytosis Not Reportable Microcytosis Not Reportable Macrocytosis Not Reportable Spherocytes Not Reportable Pappenheimer Bodies Not Reportable Sickle Cells Not Reportable Target Cells Not Reportable Tear Drop Cells Not Reportable Ovalocytes Not Reportable Helmet Cells Not Reportable [place]-Olmitz Bodies Not Reportable [place] Rings Not Reportable [place] Cells Not Reportable Bite Cells Not Reportable Crenated Cell Not Reportable Elliptocytes Not Reportable Acanthocytes (Spur) Not Reportable Rouleaux Not Reportable Hemoglobin C Crystals Not Reportable Schistocytes Not Reportable Malaria parasites Not Reportable Roger Bodies Not Reportable Hem Pathologist Commnt No Sodium 137 (137-145) mmol/L Potassium 4.0 (3.6-5.0) mmol/L Chloride 104.1 (98-107) mmol/L Carbon Dioxide 17 L (22-30) mmol/L Anion Gap 20 mmol/L BUN 57 H (9-20) mg/dL Creatinine 2.9 H D (0.8-1.3) mg/dL Estimated GFR 28 ml/min BUN/Creatinine Ratio 20 % Glucose 89 (75-100) mg/dL Uric Acid 11.3 H (3.5-7.6) mg/dL Calcium 9.6 (8.4-10.2) mg/dL Total Bilirubin 0.40 (0.1-1.2) mg/dL AST 29 (5-40) units/L ALT 33 (7-56) units/L Alkaline Phosphatase 246 H (35-129) units/L Total Creatine Kinase 137 (55-170) units/L C-Reactive Protein 9.30 H (0.00-1.30) mg/dL NT-Pro-B Natriuret Pep 1113 H (0-900) pg/mL Total Protein 7.6 (6.3-8.2) g/dL Albumin 3.4 L (3.9-5) g/dL Albumin/Globulin Ratio 0.8 % Lipase 186 H (13-60) units/L - Radiology Data Radiology results: report reviewed, image reviewed CT CHEST, ABDOMEN, AND PELVIS WITHOUT CONTRAST INDICATION / CLINICAL INFORMATION: diffuse swelling acute kidney injury. TECHNIQUE: Axial CT images were obtained through the chest, abdomen, and pelvis without contrast. All CT scans at this location are performed using CT dose reduction for ALARA by means of automated exposure control. COMPARISON: CT chest 02/22/2020, CT abdomen and pelvis 08/11/2020 FINDINGS: HEART/VASCULAR STRUCTURES: No significant abnormality. MEDIASTINUM / CARL: Prominent mediastinal nodes have slightly decreased in size. PLEURA: No pleural effusion. No pneumothorax. LUNGS: No acute air space or interstitial disease. ADDITIONAL CHEST FINDINGS: Axillary nodes are slightly more prominent. The largest is at the right axilla measuring 1.7 x 1.4 cm. LIVER: No significant abnormality. GALLBLADDER: No significant abnormality. BILE DUCTS: No significant abnormality. PANCREAS: Enlargement of the pancreatic head/uncinate process with adjacent inflammation remains with slight improvement. SPLEEN: No significant abnormality. ADRENALS: No significant abnormality. RIGHT KIDNEY / URETER: Right cyst unchanged. LEFT KIDNEY / URETER: No significant abnormality. STOMACH and SMALL BOWEL: Secondary involvement of the duodenum remains. COLON: No significant abnormality. APPENDIX: No significant abnormality. PERITONEUM: Fluid tracks along the right anterior pararenal fascia without significant change. No free air. No fluid collection. LYMPH NODES: No significant adenopathy. VASCULAR STRUCTURES: No significant abnormality. URINARY BLADDER: No significant abnormality. REPRODUCTIVE ORGANS: No significant abnormality. ADDITIONAL FINDINGS: None. SKELETAL SYSTEM: No significant abnormality. IMPRESSION: 1. Persistent changes of pancreatitis with overall minimal improvement. 2. No new abnormality at the abdomen. 3. Mild inc reasing adenopathy at the axillary regions is likely reactive. Mediastinal adenopathy is slightly improved. Signer Name: Alcon Rodriguez MD Signed: 08/18/2020 7:43 PM Workstation Name: [id number] DUPLEX DOPPLER UPPER EXTREMITY VENOUS, RIGHT INDICATION / CLINICAL INFORMATION: RUE swelling and pain. TECHNIQUE: Duplex doppler imaging was performed through the veins of the right upper extremity using venous compression and other maneuvers. COMPARISON: None available. FINDINGS: RIGHT INTERNAL JUGULAR VEIN: Negative. RIGHT SUBCLAVIAN VEIN: Negative. RIGHT AXILLARY VEIN: Negative. RIGHT BRACHIAL VEIN: Negative. RIGHT FOREARM VEINS: Negative. RIGHT BASILIC VEIN (SUPERFICIAL): Negative. ADDITIONAL FINDINGS: None. IMPRESSION: 1. No sonographic evidence for DVT. Signer Name: Marquis Argueta MD Signed: 08/18/2020 12:52 PM Workstation Name: [id number] Critical care attestation.: If time is entered above; I have spent that time in minutes in the direct care of this critically ill patient, excluding procedure time. ED Disposition Clinical Impression: Right arm pain, History of gout, Renal insufficiency, Anemia, Dependent edema, History of pancreatitis Disposition: -01 TO HOME OR SELFCARE Is pt being admited?: No Does the pt Need Aspirin: No Condition: Good Instructions: Edema, Chronic Kidney Disease, Adult, Low-Purine Eating Plan Additional Instructions: Recommend that patient avoid consumption of Motrin, ibuprofen, Naprosyn, Aleve, heavy and spicy foods. Recommend that patient avoid consumption of tobacco, smoke products, red meat, cheese, and alcohol. Please take the medications as needed and directed. Patient may alternate ice packs and heat packs as needed to painful areas on his right upper extremity and bilateral lower extremities. Please follow-up with your tax audit manager, Katlyn, within the next 3 to 5 days for repeat checkup and evaluation. Please follow-up with a patient monitor, such as Dr. Daugherty, within the next month, for evaluation of chronically low blood counts, and history of pancreatitis. Please follow-up with a last putter away, such as Dr. Pelayo, for history of congestive heart failure, within the next 10 to 14 days. Recommend that patient not take water pill/diuretics until cleared to do so by her primary care doctor, last putter away, or tax audit manager. Recommend that patient follow-up with a primary care doctor, such as Dr Lacey, within the next month. Please have your primary care doctor, tax audit manager, last putter away, or patient monitor contact medical records department within the next month, and obtain copies of laboratory studies, and radiology studies to follow-up on nonemergent incidental abnormal findings which were noted today. We suspect that the patient is experiencing a gouty attack in his right upper extremity. Please return to the emergency room right away with new pain, worsened pain, migration of pain, projectile vomiting, change in mental status, confusion, inability to tolerate liquid feeds, new, worsened or different symptoms not present on the initial emergency room evaluation Referrals: JARETH PELAYO MD [Staff Physician] - 7-10 days NINI DAUGHERTY MD [Staff Physician] - as needed ANDREW THOMPSON MD [Staff Physician] - 3-5 Days ABRAHAN LACEY MD [Staff Physician] - 7-10 days
[2020-08-19 03:09] VITALS: BP 119/77
== END 2020-08-19 02:35 | disposition home or self-care (01) ==
LOC: ED 12:16
DX: D64.9 Anemia, unspecified (principal); M10.9 Gout, unspecified; N28.9 Disorder of kidney and ureter, unspecified; M79.601 Pain in right arm; R60.9 Edema, unspecified; I10 Essential (primary) hypertension; M19.90 Unspecified osteoarthritis, unspecified site; Z79.899 Other long term (current) drug therapy; Z87.19 Personal history of other diseases of the digestive system; Z98.890 Other specified postprocedural states
CPT/HCPCS: 36415; 71250; 74176; 80053; 82550; 83690; 83880; 84550; 85007; 85025; 86140; 93971; 99284; J7512